=== PATIENT | female | born 2000 | race American Indian/Alaskan Native ===

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

== ENCOUNTER 2018-01-02 21:44 | Outpatient (CLI) | payer OTHER ==
[2018-01-02 21:58] VITALS: BP 116/64
[2018-01-02] MEDS ORDERED: LACTATED RINGERS 500 ML IV ONE (21:58)
[2018-01-02] MEDS ORDERED: LACTATED RINGERS 1,000 ML ONE ×2 (22:15→22:57)
[2018-01-02 23:53] LABS: Blood,Urine MOD (Negative); Color,Urine Yellow (Yellow); Urobilinogen,Urine < 2.0 mg/dL (<2.0)
[2018-01-02 23:54] LABS: Protein,Urine Color Interference mg/dL (Negative)
[2018-01-02 23:55] LABS: Amphetamine Screen,Urine PRESUMPTIVE NEGATIVE; Benzodiazepines Screen,Urine PRESUMPTIVE NEGATIVE; Bilirubin,Urine Color Interference (Negative); Cocaine Screen,Urine PRESUMPTIVE NEGATIVE; Methadone Screen,Urine PRESUMPTIVE NEGATIVE
[2018-01-02 23:59] LABS: RBC,Urine > 182.0 /HPF (0.0-6.0); WBC,Urine < 1.0 /HPF (0.0-6.0)
[2018-01-03 00:27] LABS: Cannabinoid Screen,Urine PRESUMPTIVE NEGATIVE; Opiate Screen,Urine PRESUMPTIVE NEGATIVE
--- NOTE | 2018-01-03 00:33 | Ultrasound Report ---
FINAL REPORT PROCEDURE: US OB BPP WO NON-STRESS TECHNIQUE: Sonographic evaluation for breathing, movement, tone, and amniotic fluid volume was performed. CPT 57472 HISTORY: Bleeding COMPARISON: No prior studies are available for comparison. FINDINGS: Amniotic fluid volume: Normal-score 2. At least one vertical pocket > 2 cm or more in vertical axis. breathing: Normal-score 2. movement: Normal-score 2. tone: Normal. Score: 8 of 8. IMPRESSION: Normal biophysical profile.
--- NOTE | 2018-01-03 00:35 | Ultrasound Report ---
FINAL REPORT PROCEDURE: US OB LIMITED TECHNIQUE: Real-time limited sonographic examination was performed for evaluation of size, position, heartbeat, fluid volume for each fetus with image documentation (1 or more fetuses). CPT 66836 HISTORY: R/O abruption, Bleeding, Placenta, MARILYN COMPARISON: No prior studies are available for comparison. FINDINGS: There is a single fetus in a transverse position. Four quadrant amniotic fluid volume is 20 centimeters. The placenta is in the fundus of the uterus. The placenta echogenicity is normal without abruption. heart rate 157 beats per minute IMPRESSION: There is a single fetus in the uterus. There is a normal amount of amniotic fluid. Placenta is in the fundus of the uterus. No abruption is seen.
== END 2018-01-03 00:37 | disposition home or self-care (01) ==
LOC: TRG 21:44
PROVIDERS: ATTEND Obstetrics & Gynecology
DX: O47.03 False labor before 37 completed weeks of gestation, third trimester (principal); Z3A.34 34 weeks gestation of pregnancy; Z79.899 Other long term (current) drug therapy
CPT/HCPCS: 59025; 76815; 76819; 80307; 81001; 96360; 96361; J7120

== ENCOUNTER 2018-01-06 11:00 | Outpatient (CLI) | payer OTHER ==
--- NOTE | 2018-01-06 12:13 | Ultrasound Report ---
Right ultrasound: patient presenting with an enlarging, palpable, painful mass in her breast at 2:00 location. Ultrasound over the area of concern demonstrates a mostly circumscribed and lobulated hypoechogenic mass measuring approximately 2 x 4.3 cm in size. It is elongated parallel to the skin and lies just below the skin level. Flow imaging suggests flow within the mass. The examining technologist indicates that the scan is somewhat warm over this area. Of additional note is a circumscribed subcutaneous hypoechogenic and circumscribed mass somewhat in the 12:00 location measuring 1.1 cm. Impressions: 1. The palpable mass may be solid however an abscess is not totally excluded. 2. The 12:00 lesion is consistent with a small fibroadenoma. Followup however is recommended following delivery. Recommendation: The palpable mass needs further investigation with aspiration/biopsy. BI-RADS CATEGORY: 4 = Suspicious ACR BI-RADS MAMMOGRAPHIC CODES: 0 = Needs additional imaging evaluation; 1 = Negative; 2 = Benign; 3 = Probably benign; 4 = Suspicious; 5 = Malignant; 6 = Known biopsy-proven malignancy COMMENT: 1. Dense breast tissue, i.e., adenosis, fibrocystic changes, etc., may obscure an underlying neoplasm. 2. Approximately 10% of cancers are not detected with mammography. 3. A negative mammography report should not delay biopsy if a clinically suspicious mass is present.
== END 2018-01-06 11:01 | disposition home or self-care (01) ==
LOC: US 11:00
PROVIDERS: ATTEND Advanced Practice Midwife
DX: N63.10 Unspecified lump in the right breast, unspecified quadrant (principal); Z83.3 Family history of diabetes mellitus; Z82.49 Family history of ischemic heart disease and other diseases of the circulatory system

== ENCOUNTER 2018-01-14 19:55 | Outpatient (CLI) | payer OTHER ==
[2018-01-14 20:20] VITALS: BP 116/68
[2018-01-14] MEDS ORDERED: LACTATED RINGERS 500 ML IV ONE (20:35)
[2018-01-14] MEDS ORDERED: TYLENOL PO ONE (20:36)
[2018-01-14] MEDS ORDERED: VISTARIL PO PRN (20:43)
== END 2018-01-14 21:00 | disposition home or self-care (01) ==
LOC: TRG 19:55
PROVIDERS: ATTEND Obstetrics & Gynecology
DX: O47.03 False labor before 37 completed weeks of gestation, third trimester (principal); Z3A.36 36 weeks gestation of pregnancy
CPT/HCPCS: 59025; Q0177

== ENCOUNTER 2018-01-16 13:58 | Outpatient (CLI) | payer OTHER ==
--- NOTE | 2018-01-16 15:43 | Ultrasound Report ---
ULTRASOUND GUIDED NEEDLE CORE BIOPSY RIGHT BREAST WITH CLIP PLACEMENT: 01/16/18 CLINICAL: 17 year-old with a palpable right breast mass. COMPARISON :01/06/18 FINDINGS: The procedure was explained to the patient and informed consent was obtained. Ultrasound demonstrated the previously described 4 cm mass 2 o'clock. I marked the breast with a felt tip marker and a time out was called. The skin was prepped with Betadine and anesthetized with 1% lidocaine. Needle core biopsy was performed through a tiny dermatotomy using ultrasound guidance, 2% lidocaine with epinephrine for deep anesthesia and a 14-gauge Achieve biopsy device. 3 cores were obtained and placed in formalin. A clip was deployed within the mass. The patient tolerated the procedure well and there were no apparent complications. Hemostasis was achieved with minimal pressure and a sterile dressing was applied. A post procedure mammogram was not performed. She left the department in good condition and was given instructions for wound care and followup. IMPRESSION: Uncomplicated ultrasound guided needle core biopsy with clip placement right breast.
== END 2018-01-16 13:59 | disposition home or self-care (01) ==
LOC: SPVWC 13:58
PROVIDERS: ATTEND Obstetrics & Gynecology
DX: D24.1 Benign neoplasm of right breast (principal)
CPT/HCPCS: 19083; 88305; A4648

== ENCOUNTER 2018-01-22 12:59 | Outpatient (CLI) | payer OTHER ==
[2018-01-22 13:39] VITALS: BP 115/67
[2018-01-22] MEDS ORDERED: VISTARIL PO ONE (15:30)
== END 2018-01-22 14:41 | disposition home or self-care (01) ==
LOC: TRG 12:59
PROVIDERS: ATTEND Obstetrics & Gynecology
DX: O47.03 False labor before 37 completed weeks of gestation, third trimester (principal); Z3A.37 37 weeks gestation of pregnancy
CPT/HCPCS: 59025; Q0177

== ENCOUNTER 2018-02-01 10:42 | Outpatient (CLI) | payer OTHER ==
[2018-02-01] MEDS ORDERED: ZOFRAN ODT PO ONE (12:20)
== END 2018-02-01 12:10 | disposition home or self-care (01) ==
LOC: TRG 10:42
PROVIDERS: ATTEND Obstetrics & Gynecology
DX: O47.03 False labor before 37 completed weeks of gestation, third trimester (principal); Z3A.38 38 weeks gestation of pregnancy
CPT/HCPCS: 59025; Q0162

== ENCOUNTER 2018-02-07 16:47 | Outpatient (CLI) | payer OTHER ==
[2018-02-07 17:42] VITALS: BP 118/68
== END 2018-02-07 17:53 | disposition home or self-care (01) ==
LOC: TRG 16:47
PROVIDERS: ATTEND Obstetrics & Gynecology
DX: O47.1 False labor at or after 37 completed weeks of gestation (principal); Z3A.39 39 weeks gestation of pregnancy; Z91.048 Other nonmedicinal substance allergy status
CPT/HCPCS: 59025

== ENCOUNTER 2018-02-13 02:35 | Outpatient (CLI) | payer OTHER ==
[2018-02-13 03:29] VITALS: BP 111/65
== END 2018-02-13 04:59 | disposition home or self-care (01) ==
LOC: TRG 02:35
PROVIDERS: ATTEND Obstetrics & Gynecology
DX: O62.9 Abnormality of forces of labor, unspecified (principal); Z3A.40 40 weeks gestation of pregnancy
CPT/HCPCS: 59025

== ENCOUNTER 2018-02-19 20:47 | Inpatient (IN) | payer OTHER ==
[2018-02-19] MEDS ORDERED: CERVIDIL VG ONE (23:00)
[2018-02-19 23:28] LABS: Hematocrit 34.4 % (30.3-42.9); Hemoglobin 12.1 gm/dl (10.1-14.3); Mean Corpuscular HGB Conc 35 % (30-34); Mean Corpuscular Hemoglobin 35 pg (28-32); Mean Corpuscular Volume 101 fl (79-97); Platelet Count 211 K/mm3 (140-440); Red Blood Count 3.41 M/mm3 (3.65-5.03); Red Cell Distribution Width 13.3 % (13.2-15.2)
--- NOTE | 2018-02-20 01:14 | History and Physical Report ---
History of Present Illness Date of examination: 02/20/18 (pt here for IOL Cervidil) Date of admission: 02/19/18 20:47 History of present illness: EDC Confirmation: 02/11/2018 Gestational Age: 18 2/7 weeks Past History : 1 Term Births: 0 Premature Births: 0 Living Children: 0 Para: 0 Mult. Births: 0 Prev : 0 Prev. attempt? 0 Aborta: 0 Elect. Ab: 0 Spont. Ab: 0 Ectopics: 0 Past Medical History: Negative Past Medical History Past Surgical History: negative Past Medical History Anesthesia Complications: negative Anemia: negative Autoimmune Disorder: negative Bleeding Disorder: negative Blood Transfusions: negative Breast Disease: negative Diabetes: negative Heart Disease: negative Hypertension: negative Hepatitis/Liver Disease: negative Kidney Disease/UTI: negative Neurologic/Epilepsy/Migraines: negative Phlebitis/Varicosities: negative Psychiatric: negative Pulmonary Disease/Asthma: negative Thyroid Disease: negative Hospitalizations: negative Surgery (Non-drupal programmer): negative Abnormal PAP: negative UVALDO Exposure: negative Infertility: negative Uterine Anomaly: negative Uterine Surgery (not C/S): negative Other Gynecologic Problems: negative Family Hx: Breast CA- PGM DM - PGF Social Hx: Single unemployed no ETOH/drugs/moking Infection History Hx of STD: GC/[facility] 2017 HIV Risk Eval: low risk Hepatitis B Risk Eval: low risk Personal hx. of genital herpes: no Partner hx. of genital herpes: no Rash, Viral, or Febrile illness since last LMP? no Varicella/Chicken Pox Status: Immunized TB Risk: no Genetic History Congenital Heart Defect: Mom: no Dad: no Lili Disease: Mom: no Dad: no Thalassemia Mom: no Dad: no Neural Tube Defect Mom: no Dad: no Down's Syndrome Mom: no Dad: no Alex-Sachs Mom: no Dad: no Sickle Cell Disease/Trait Mom: no Dad: no Hemophilia Mom: no Dad: no Muscular Dystrophy Mom: no Dad: no Cystic Fibrosis Mom: no Dad: no [place] Chorea Mom: no Dad: no Mental Retardation Mom: no Dad: no Fragile X Mom: no Dad: no Other Genetic/Chromosomal Disorder Mom: no Dad: no Child w/other defect Mom: no Dad: no Enviromental Exposures Xray Exposure: no Medication, drug, or alcohol use since LMP: no Chemical/Other Exposure: no Exposure to Cat Liter: no Hx of Parvovirus (Fifth Disease): no Occupational Exposure to Children: none Active Medications (reviewed today): None Current Allergies (reviewed today): No known allergies Past History - Obstetrical History Expected Date of Delivery: 02/11/18 Actual Gestation: 41 Week(s) 2 Day(s) : 1 Para: 0 Hx # Term Pregnancies: 0 Number of Pregnancies: 0 Spontaneous Abortions: 0 Induced : 0 Number of Living Children: 0 Medications and Allergies Allergies Allergy/AdvReac Type Severity Reaction Status Date / Time pollen extracts Allergy Shortness Verified 12/07/17 14:28 of Breath Home Medications Medication Instructions Recorded Confirmed Last Taken Type Pnv,Calcium 72/Iron/Folic Acid 1 tab PO DAILY 12/07/17 02/01/18 01/31/18 History [ Plus Tablet] Active Meds: Active Medications Lactated Ringer's (Lactated Ringers) 1,000 mls @ 125 mls/hr IV DIRECT LAVONNE - Vital Signs Vital signs: Vital Signs Pulse BP 100 H 115/70 02/19/18 21:31 02/19/18 21:31 Temp Pulse Resp BP Pulse Ox 79 115/57 02/20/18 00:13 02/20/18 00:13 - Physical Exam Breasts: Positive: deferred Cardiovascular: Regular rate, Normal S1, Normal S2 Lungs: Positive: Clear to auscultation Abdomen: Positive: normal appearance, soft, normal bowel sounds. Negative: distention, tenderness Genitourinary (Female): Positive: normal external genitalia Vulva: both: normal Vagina: Positive: normal moisture. Negative: discharge Cervix: Negative: lesion, discharge Uterus: Positive: normal size, normal contour Adnexa: both: normal Anus/Rectum: Positive: normal perianal skin, heme negative. Negative: rectal mass, hemorrhoids Extremities: Positive: normal Deep Tendon Reflex Grade: Normal +2 - Obstetrical FHR: category 1 Uterine Contraction Monitor Mode: External Cervical Dilatation: 1 (Cervidil placed 2300) Cervical Effacement Percentage: 50 (Exam per assistant offset press operator) station: -3 Uterine Contraction Pattern: Absent Uterine Tone Measurement Phase: Resting Results Result Diagrams: 02/19/18 23:00 Abnormal lab results 02/19/18 Range/Units 23:00 RBC 3.41 L (3.65-5.03) M/mm3 MCV 101 H (79-97) fl MCH 35 H (28-32) pg MCHC 35 H (30-34) % All other labs normal. GBS POSITIVE HBsAg Screen Negative Negative *1 RPR Non Reactive Non Reactive *2 Rubella Antibodies, IgG [L] <0.90 index Immune >0.99 *3 Non-immune <0.90 Equivocal 0.90 - 0.99 Immune >0.99 ABO Grouping A *4 Rh Factor Positive *5 Please note: Prior records for this patient's ABO / Rh type are not available for additional verification. Antibody Screen Negative Negative *6 WBC 7.2 x10E3/uL 3.4-10.8 *7 RBC [L] 3.48 x10E6/uL 3.77-5.28 *8 Hemoglobin 11.4 g/dL 11.1-15.9 *9 Hematocrit [L] 33.4 % 34.0-46.6 *10 MCV 96 fL 79-97 *11 MCH 32.8 pg 26.6-33.0 *12 MCHC 34.1 g/dL 31.5-35.7 *13 RDW 14.1 % 12.3-15.4 *14 Platelets 251 x10E3/uL 150-379 *15 Neutrophils 66 % Not Estab. *16 Lymphs 26 % Not Estab. *17 Monocytes 7 % Not Estab. *18 Eos 1 % Not Estab. *19 Basos 0 % Not Estab. *20 ! Immature Cells <No Reported Value> *21 Neutrophils (Absolute) 4.8 x10E3/uL 1.4-7.0 *22 Lymphs (Absolute) 1.9 x10E3/uL 0.7-3.1 *23 Monocytes(Absolute) 0.5 x10E3/uL 0.1-0.9 *24 Eos (Absolute) 0.0 x10E3/uL 0.0-0.4 *25 Baso (Absolute) 0.0 x10E3/uL 0.0-0.2 *26 ! Immature Granulocytes 0 % Not Estab. *27 ! Immature Grans (Abs) 0.0 x10E3/uL 0.0-0.1 *28 ! NRBC <No Reported Value> *29 Hematology Comments: <No Reported Value> *30 Tests: (2) AFP Tetra ([id number]) ! Results Report *31 ! Test Results: *Screen Negative* *32 Tests: (3) Panel 209131 ([id number]) HIV Screen 4th Generation wRfx Non Reactive Non Reactive *55 Tests: (4) HCV Ab w/Rflx to Verification ([id number]) ! HCV Ab <0.1 s/co ratio 0.0-0.9 *56 Tests: (5) Comment: ([id number]) ! Comment: SPRCS *57 Non reactive HCV antibody screen is consistent with no HCV infection, unless recent infection is suspected or other evidence exists to indicate HCV infection. Tests: (6) Urine Culture, Routine ([id number]) Urine Culture, Routine Final report *58 Tests: (7) Result ([id number]) ! Result 1 MUG *59 Mixed urogenital robb 10,000-25,000 colony forming units per mL Assessment and Plan - Patient Problems (1) 41 weeks gestation of Onset Date: ~02/20/18 Current Visit: Yes Status: Acute Plan to address problem: 17yo @ 41 weeks for IOL GBS+, rubella non-immune; depression. All orders in EMR. (2) Group B Streptococcus carrier state affecting Onset Date: ~02/20/18 Current Visit: Yes Status: Acute Plan to address problem: Ampicillin per protocol for GBS treatment (3) Rubella non-immune status, antepartum Onset Date: ~02/20/18 Current Visit: Yes Status: Acute Plan to address problem: Pt will receive MMR during the PP
[2018-02-20] MEDS ORDERED: ePHEDrine SULFATE IV PRN ×2 (01:16→06:17)
[2018-02-20] MEDS ORDERED: MINERAL OIL PO PRN (01:16)
[2018-02-20] MEDS ORDERED: XYLOCAINE 2% INFILTRATI ONE (01:16)
[2018-02-20] MEDS ORDERED: BRETHINE SUB-Q PRN (01:16)
[2018-02-20] MEDS ORDERED: ZOFRAN IV PRN ×2 (01:16→10:42)
[2018-02-20] MEDS ORDERED: PITOCin/NS 20 UNIT/1000ML DRIP 20 UNITS/1,000 ML BAG IV SCH (02:00)
[2018-02-20] MEDS: SUBLIMAZE IV PRN ×2 (02:55→05:10)
--- NOTE | 2018-02-20 03:18 | Progress Note ---
Assessment and Plan Pt c/o worsening pain and more freq ctx SVE 1, 50, -2 Cervidil removed. Noted green/yellow d/c Culture sent. Pt OOB to void. IVF bolus given. Fentanyl given. Will start pitocin and ampicillin @ 0400. Pt resting Parents in room with pt. Pt non-communicative. Keeps her eyes closed. She will respond to direct questions. Her mom states she has not been on any meds for depression/anxiety. - Patient Problems (1) 41 weeks gestation of Onset Date: ~02/20/18 Current Visit: Yes Status: Acute (2) Group B Streptococcus carrier state affecting Onset Date: ~02/20/18 Current Visit: Yes Status: Acute (3) Rubella non-immune status, antepartum Onset Date: ~02/20/18 Current Visit: Yes Status: Acute Subjective - Subjective Date of service: 02/20/18 (pt req pain meds) Principal diagnosis: IUP @ 41 weeks IOL Cervidil; GBS + Interval history: EDC Confirmation: 02/11/2018 Gestational Age: 18 2/7 weeks Past History : 1 Term Births: 0 Premature Births: 0 Living Children: 0 Para: 0 Mult. Births: 0 Prev : 0 Prev. attempt? 0 Aborta: 0 Elect. Ab: 0 Spont. Ab: 0 Ectopics: 0 Past Medical History: Negative Past Medical History Past Surgical History: negative Past Medical History Anesthesia Complications: negative Anemia: negative Autoimmune Disorder: negative Bleeding Disorder: negative Blood Transfusions: negative Breast Disease: negative Diabetes: negative Heart Disease: negative Hypertension: negative Hepatitis/Liver Disease: negative Kidney Disease/UTI: negative Neurologic/Epilepsy/Migraines: negative Phlebitis/Varicosities: negative Psychiatric: negative Pulmonary Disease/Asthma: negative Thyroid Disease: negative Hospitalizations: negative Surgery (Non-bobbin cleaner): negative Abnormal PAP: negative UVALDO Exposure: negative Infertility: negative Uterine Anomaly: negative Uterine Surgery (not C/S): negative Other Gynecologic Problems: negative Family Hx: Breast CA- PGM DM - PGF Social Hx: Single unemployed no ETOH/drugs/moking Infection History Hx of STD: /[facility] 2016 HIV Risk Eval: low risk Hepatitis B Risk Eval: low risk Personal hx. of genital herpes: no Partner hx. of genital herpes: no Rash, Viral, or Febrile illness since last LMP? no Varicella/Chicken Pox Status: Immunized TB Risk: no Genetic History Congenital Heart Defect: Mom: no Dad: no Lili Disease: Mom: no Dad: no Thalassemia Mom: no Dad: no Neural Tube Defect Mom: no Dad: no Down's Syndrome Mom: no Dad: no Alex-Sachs Mom: no Dad: no Sickle Cell Disease/Trait Mom: no Dad: no Hemophilia Mom: no Dad: no Muscular Dystrophy Mom: no Dad: no Cystic Fibrosis Mom: no Dad: no [place] Chorea Mom: no Dad: no Mental Retardation Mom: no Dad: no Fragile X Mom: no Dad: no Other Genetic/Chromosomal Disorder Mom: no Dad: no Child w/other defect Mom: no Dad: no Enviromental Exposures Xray Exposure: no Medication, drug, or alcohol use since LMP: no Chemical/Other Exposure: no Exposure to Cat Liter: no Hx of Parvovirus (Fifth Disease): no Occupational Exposure to Children: none Active Medications (reviewed today): None Current Allergies (reviewed today): No known allergies Patient reports: movement normal, contractions Objective - Vital Signs Vital Signs: Vital Signs - 12hr 02/19/18 02/19/18 02/20/18 21:31 23:12 00:13 Pulse Rate 100 H 90 79 Respiratory Rate Blood Pressure 115/70 109/71 115/57 02/20/18 02/20/18 02/20/18 02:12 02:55 03:12 Pulse Rate 69 81 Respiratory 18 Rate Blood Pressure 111/61 105/56 - Exam Breasts: deferred Cardiovascular: Regular rate Lungs: Normal air movement Abdomen: Present: normal appearance, soft. Absent: distention, tenderness Uterus: Present: normal FHR: auscultation normal, category 1 Uterine Contraction Monitor Mode: External Cervical Dilatation: 1 (cervidil in place) Cervical Effacement Percentage: 50 (thick yellow/green d/c; culture done) station: -2 Uterine Contraction Pattern: Regular Uterine Tone Measurement Phase: Resting Uterine Contraction Intensity: Moderate Extremities: normal Deep Tendon Reflex Grade: Normal +2 - Labs Labs: Abnormal Labs 02/19/18 23:00 RBC 3.41 L MCV 101 H MCH 35 H MCHC 35 H Laboratory Results - last 24 hr 02/19/18 02/19/18 23:00 23:00 WBC 6.8 RBC 3.41 L Hgb 12.1 Hct 34.4 MCV 101 H MCH 35 H MCHC 35 H RDW 13.3 Plt Count 211 Blood Type A POSITIVE Antibody Screen Negative
[2018-02-20] MEDS: LACTATED RINGERS 1,000 ML IV SCH ×2 (03:24→05:41)
[2018-02-20] MEDS ORDERED: POLYCILLIN/NS 2 GM/100 ML 2 GM/100 ML BAG IV ONE ×2 (04:00→13:00)
[2018-02-20] MEDS ORDERED: PITOCin/NS 30 UNIT/500ML 30 UNITS/500 ML BAG IV SCH ×2 (04:00→13:00)
--- NOTE | 2018-02-20 05:28 | Progress Note ---
Assessment and Plan Called to LDR Pt screaming in pain. Pit off due to hyperstim; terb given, fluid bolus started for epidural. FHR Cat 1. SROM clear fluid SVE 3,70,-1 Internals placed. Will re-eval after epidural placed. - Patient Problems (1) 41 weeks gestation of Onset Date: ~02/20/18 Current Visit: Yes Status: Acute (2) Group B Streptococcus carrier state affecting Onset Date: ~02/20/18 Current Visit: Yes Status: Acute (3) Rubella non-immune status, antepartum Onset Date: ~02/20/18 Current Visit: Yes Status: Acute Subjective - Subjective Date of service: 02/20/18 (pt screaming out in pain) Principal diagnosis: IUP @ 41 weeks IOL ; GBS + Interval history: EDC Confirmation: 02/11/2018 Gestational Age: 18 2/7 weeks Past History : 1 Term Births: 0 Premature Births: 0 Living Children: 0 Para: 0 Mult. Births: 0 Prev : 0 Prev. attempt? 0 Aborta: 0 Elect. Ab: 0 Spont. Ab: 0 Ectopics: 0 Past Medical History: Negative Past Medical History Past Surgical History: negative Past Medical History Anesthesia Complications: negative Anemia: negative Autoimmune Disorder: negative Bleeding Disorder: negative Blood Transfusions: negative Breast Disease: negative Diabetes: negative Heart Disease: negative Hypertension: negative Hepatitis/Liver Disease: negative Kidney Disease/UTI: negative Neurologic/Epilepsy/Migraines: negative Phlebitis/Varicosities: negative Psychiatric: negative Pulmonary Disease/Asthma: negative Thyroid Disease: negative Hospitalizations: negative Surgery (Non-study abroad coordinator): negative Abnormal PAP: negative UVALDO Exposure: negative Infertility: negative Uterine Anomaly: negative Uterine Surgery (not C/S): negative Other Gynecologic Problems: negative Family Hx: Breast CA- PGM DM - PGF Social Hx: Single unemployed no ETOH/drugs/moking Infection History Hx of STD: GC/[facility] 2017 HIV Risk Eval: low risk Hepatitis B Risk Eval: low risk Personal hx. of genital herpes: no Partner hx. of genital herpes: no Rash, Viral, or Febrile illness since last LMP? no Varicella/Chicken Pox Status: Immunized TB Risk: no Genetic History Congenital Heart Defect: Mom: no Dad: no Lili Disease: Mom: no Dad: no Thalassemia Mom: no Dad: no Neural Tube Defect Mom: no Dad: no Down's Syndrome Mom: no Dad: no Alex-Sachs Mom: no Dad: no Sickle Cell Disease/Trait Mom: no Dad: no Hemophilia Mom: no Dad: no Muscular Dystrophy Mom: no Dad: no Cystic Fibrosis Mom: no Dad: no [place] Chorea Mom: no Dad: no Mental Retardation Mom: no Dad: no Fragile X Mom: no Dad: no Other Genetic/Chromosomal Disorder Mom: no Dad: no Child w/other defect Mom: no Dad: no Enviromental Exposures Xray Exposure: no Medication, drug, or alcohol use since LMP: no Chemical/Other Exposure: no Exposure to Cat Liter: no Hx of Parvovirus (Fifth Disease): no Occupational Exposure to Children: none Active Medications (reviewed today): None Current Allergies (reviewed today): No known allergies Patient reports: movement normal, contractions Objective - Vital Signs Vital Signs: Vital Signs - 12hr 02/19/18 02/19/18 02/20/18 21:31 23:12 00:13 Pulse Rate 100 H 90 79 Respiratory Rate Blood Pressure 115/70 109/71 115/57 02/20/18 02/20/18 02/20/18 02:12 02:55 03:12 Pulse Rate 69 81 Respiratory 18 Rate Blood Pressure 111/61 105/56 02/20/18 02/20/18 03:25 04:12 Pulse Rate 77 Respiratory 18 Rate Blood Pressure 97/55 - Exam Breasts: deferred Cardiovascular: Regular rate Lungs: Normal air movement Abdomen: Present: normal appearance, soft. Absent: distention, tenderness Uterus: Present: normal FHR: auscultation normal, category 1 Uterine Contraction Monitor Mode: Internal Cervical Dilatation: 3 (SROM clear; pitocin off) Cervical Effacement Percentage: 70 (Hyperstim-TERB given; internals placed) station: -1 Uterine Contraction Frequency (min): q1min Uterine Contraction Duration: 50 Uterine Contraction Pattern: Regular Uterine Tone Measurement Phase: Resting Uterine Contraction Intensity: Strong/Firm Extremities: normal Deep Tendon Reflex Grade: Normal +2 - Labs Labs: Abnormal Labs 02/19/18 23:00 RBC 3.41 L MCV 101 H MCH 35 H MCHC 35 H Laboratory Results - last 24 hr 02/19/18 02/19/18 23:00 23:00 WBC 6.8 RBC 3.41 L Hgb 12.1 Hct 34.4 MCV 101 H MCH 35 H MCHC 35 H RDW 13.3 Plt Count 211 Blood Type A POSITIVE Antibody Screen Negative
[2018-02-20] MEDS ORDERED: NARCAN 2 MG/2 ML IV PRN (06:17)
--- NOTE | 2018-02-20 06:17 | Anesthesia Consultation ---
Anesthesia Consult and Med Hx Date of service: 02/20/18 - Airway Anesthetic Teeth Evaluation: Good ROM Head & Neck: Adequate Mental/Hyoid Distance: Adequate Mallampati Class: Class II Intubation Access Assessment: Good - Pulmonary Exam CTA: Yes - Cardiac Exam Cardiac Exam: No Murmur - Pre-Operative Health Status ASA Pre-Surgery Classification: ASA2 Proposed Anesthetic Plan: Epidural - Pulmonary Hx Asthma: No COPD: No Hx Pneumonia: No - Cardiovascular System Hx Hypertension: No - Central Nervous System Hx Seizures: No Hx Psychiatric Problems: No - Endocrine Hx Renal Disease: No Hx End Stage Renal Disease: No Hx Hypothyroidism: No Hx Hyperthyroidism: No - Hematic Hx Anemia: No Hx Sickle Cell Disease: No - Other Systems Hx Alcohol Use: No Hx Substance Use: No
--- NOTE | 2018-02-20 06:28 | Progress Note ---
Assessment and Plan Pt comfortable with epidural. Pitocin restarted 2mu Q 30min ISE/IUPC working well. Ctx Q2-3,45,mod FHR Cat 1 SVE No chg 3,70,-1 Pt encouraged to rest. Will report to Dr.Meziere Dennison-kameron as needed - Patient Problems (1) 41 weeks gestation of Onset Date: ~02/20/18 Current Visit: Yes Status: Acute (2) Group B Streptococcus carrier state affecting Onset Date: ~02/20/18 Current Visit: Yes Status: Acute (3) Rubella non-immune status, antepartum Onset Date: ~02/20/18 Current Visit: Yes Status: Acute Subjective - Subjective Date of service: 02/20/18 (comfrotable with epidural) Principal diagnosis: IUP @ 41 weeks IOL ; GBS + Interval history: EDC Confirmation: 02/11/2018 Gestational Age: 18 2/7 weeks Past History : 1 Term Births: 0 Premature Births: 0 Living Children: 0 Para: 0 Mult. Births: 0 Prev : 0 Prev. attempt? 0 Aborta: 0 Elect. Ab: 0 Spont. Ab: 0 Ectopics: 0 Past Medical History: Negative Past Medical History Past Surgical History: negative Past Medical History Anesthesia Complications: negative Anemia: negative Autoimmune Disorder: negative Bleeding Disorder: negative Blood Transfusions: negative Breast Disease: negative Diabetes: negative Heart Disease: negative Hypertension: negative Hepatitis/Liver Disease: negative Kidney Disease/UTI: negative Neurologic/Epilepsy/Migraines: negative Phlebitis/Varicosities: negative Psychiatric: negative Pulmonary Disease/Asthma: negative Thyroid Disease: negative Hospitalizations: negative Surgery (Non-neon electrician): negative Abnormal PAP: negative UVALDO Exposure: negative Infertility: negative Uterine Anomaly: negative Uterine Surgery (not C/S): negative Other Gynecologic Problems: negative Family Hx: Breast CA- PGM DM - PGF Social Hx: Single unemployed no ETOH/drugs/moking Infection History Hx of STD: GC/CH 2017 HIV Risk Eval: low risk Hepatitis B Risk Eval: low risk Personal hx. of genital herpes: no Partner hx. of genital herpes: no Rash, Viral, or Febrile illness since last LMP? no Varicella/Chicken Pox Status: Immunized TB Risk: no Genetic History Congenital Heart Defect: Mom: no Dad: no Lili Disease: Mom: no Dad: no Thalassemia Mom: no Dad: no Neural Tube Defect Mom: no Dad: no Down's Syndrome Mom: no Dad: no Alex-Sachs Mom: no Dad: no Sickle Cell Disease/Trait Mom: no Dad: no Hemophilia Mom: no Dad: no Muscular Dystrophy Mom: no Dad: no Cystic Fibrosis Mom: no Dad: no Tiller Chorea Mom: no Dad: no Mental Retardation Mom: no Dad: no Fragile X Mom: no Dad: no Other Genetic/Chromosomal Disorder Mom: no Dad: no Child w/other defect Mom: no Dad: no Enviromental Exposures Xray Exposure: no Medication, drug, or alcohol use since LMP: no Chemical/Other Exposure: no Exposure to Cat Liter: no Hx of Parvovirus (Fifth Disease): no Occupational Exposure to Children: none Active Medications (reviewed today): None Current Allergies (reviewed today): No known allergies Patient reports: movement normal, contractions Objective - Vital Signs Vital Signs: Vital Signs - 12hr 02/19/18 02/19/18 02/20/18 21:31 23:12 00:13 Temperature Pulse Rate 100 H 90 79 Respiratory Rate Blood Pressure 115/70 109/71 115/57 Blood Pressure [Left] O2 Sat by Pulse Oximetry 02/20/18 02/20/18 02/20/18 02:12 02:55 03:12 Temperature Pulse Rate 69 81 Respiratory 18 Rate Blood Pressure 111/61 105/56 Blood Pressure [Left] O2 Sat by Pulse Oximetry 02/20/18 02/20/18 02/20/18 03:25 04:12 05:10 Temperature Pulse Rate 77 Respiratory 18 18 Rate Blood Pressure 97/55 Blood Pressure [Left] O2 Sat by Pulse Oximetry 02/20/18 02/20/18 02/20/18 05:39 05:43 05:44 Temperature 97.5 F L Pulse Rate 83 87 89 Respiratory 20 Rate Blood Pressure Blood Pressure 125/64 [Left] O2 Sat by Pulse 100 94 99 Oximetry 02/20/18 02/20/18 02/20/18 05:48 05:49 05:54 Temperature Pulse Rate 83 83 84 Respiratory Rate Blood Pressure 125/64 Blood Pressure [Left] O2 Sat by Pulse 99 98 Oximetry 02/20/18 02/20/18 02/20/18 05:56 06:01 06:06 Temperature Pulse Rate 104 H 101 H 92 H Respiratory Rate Blood Pressure 110/55 Blood Pressure [Left] O2 Sat by Pulse 91 94 98 Oximetry 02/20/18 02/20/18 02/20/18 06:07 06:09 06:11 Temperature Pulse Rate 92 H 82 85 Respiratory Rate Blood Pressure 119/60 112/55 114/55 Blood Pressure [Left] O2 Sat by Pulse 97 Oximetry 02/20/18 02/20/18 02/20/18 06:13 06:15 06:16 Temperature Pulse Rate 84 85 88 Respiratory Rate Blood Pressure 110/55 107/59 Blood Pressure [Left] O2 Sat by Pulse 94 Oximetry 02/20/18 02/20/18 02/20/18 06:17 06:19 06:21 Temperature Pulse Rate 80 91 H 78 Respiratory Rate Blood Pressure 113/57 106/57 109/53 Blood Pressure [Left] O2 Sat by Pulse 98 Oximetry 02/20/18 02/20/18 06:23 06:26 Temperature Pulse Rate 76 87 Respiratory Rate Blood Pressure 106/55 Blood Pressure [Left] O2 Sat by Pulse 98 Oximetry - Exam Breasts: deferred Cardiovascular: Regular rate Lungs: Normal air movement Abdomen: Present: normal appearance, soft. Absent: distention, tenderness Uterus: Present: normal FHR: auscultation normal, category 1 Uterine Contraction Monitor Mode: Internal Cervical Dilatation: 3 Cervical Effacement Percentage: 70 station: -1 Uterine Contraction Pattern: Regular Uterine Contraction Intensity: Moderate Extremities: normal Deep Tendon Reflex Grade: Normal +2 - Labs Labs: Abnormal Labs 02/19/18 23:00 RBC 3.41 L MCV 101 H MCH 35 H MCHC 35 H Laboratory Results - last 24 hr 02/19/18 02/19/18 23:00 23:00 WBC 6.8 RBC 3.41 L Hgb 12.1 Hct 34.4 MCV 101 H MCH 35 H MCHC 35 H RDW 13.3 Plt Count 211 Blood Type A POSITIVE Antibody Screen Negative
[2018-02-20] MEDS ORDERED: fentaNYL-BUPIV 2 MCG/ML-0.125% 200 MCG/100 ML BAG EPIDURAL SCH (07:00)
[2018-02-20] MEDS ORDERED: AMPICILLIN/NS 1 GM/50 ML 1 GM/50 ML BAG IV SCH (08:00)
--- NOTE | 2018-02-20 08:32 | Event Note ---
Date: 02/20/18 Pt doing well comfortable with epidural in place. Will con't with IOL at this time. Plan of care d/w pt and her support persons. All questions were addressed and answered.
--- NOTE | 2018-02-20 10:41 | Procedure Note ---
OB Delivery Note - Delivery Date of Delivery: 02/20/18 Surgeon: KIRSTY HOUSE Estimated blood loss: 200cc - Vaginal Delivery presentation: vertex Delivery position: OA Intrapartum events: none Delivery induction: cervidil Delivery augmentation: pitocin Delivery monitor: external FHT, external uterine, internal FHT, internal uterine Route of delivery: Delivery placenta: spontaneous, other (intact) Delivery cord: 3 umbilical vessels Episiotomy: none Delivery laceration: 2nd degree (left labial, perineal, right perirurethal all repaired in usual fashion with 3-0 vicrly) Delivery repair: vicryl Anesthesia: epidural Delivery comments: Delivery as above without complications. Infant placed on maternal abdomen. Cord clamped x 2 and cut x1. Cord blood was not collected. Placenta delivered spontaneously intact. Lacerations as noted and repaired in usual fashion. Mother and infanta stable in LDR. - Infant A at 1 minute: 8 at 5 minutes: 9 Gender: Male (8lbs 3oz)
[2018-02-20] MEDS ORDERED: DULCOLAX PR PRN (10:42)
[2018-02-20] MEDS ORDERED: TYLENOL PO PRN (10:42)
[2018-02-20] MEDS ORDERED: LANSINOH TP PRN (10:42)
[2018-02-20] MEDS ORDERED: BENADRYL PO PRN (10:42)
[2018-02-20] MEDS ORDERED: PHENERGAN PO PRN (10:42)
[2018-02-20] MEDS ORDERED: TUCKS PAD TP PRN (10:42)
[2018-02-20] MEDS ORDERED: SODIUM CHLORIDE FLUSH SYRINGE 10 ML IV SCH (11:00)
[2018-02-20] MEDS: MOTRIN PO SCH ×2 (16:20→22:38)
[2018-02-20 23:20] LABS: Hematocrit 34.8 % (30.3-42.9); Hemoglobin 11.9 gm/dl (10.1-14.3)
[2018-02-21] MEDS: MOTRIN PO SCH (05:49)
[2018-02-21] MEDS ORDERED: BOOSTRIX IM ONE (06:00)
--- NOTE | 2018-02-21 08:06 | Discharge Summary ---
Providers - Providers Date of Admission: 02/19/18 20:47 Date of discharge: 02/21/18 (desires d/c home) Attending physician: CECIL BLUM Primary care physician: CECIL BLUM Hospitalization Reason for admission: Induction of labor Condition: Good Pertinent studies: H&H 11.9/31.8 Procedures: vaginal Hospital course: uncomplicated vaginal and course Disposition: DC-01 TO HOME OR SELFCARE - Discharge Diagnoses (1) Vaginal delivery Status: Acute Core Measure Documentation - Palliative Care Palliative Care/ Comfort Measures: Not Applicable - Core Measures Any of the following diagnoses?: none Exam - Constitutional Vitals: Temp Pulse Resp BP Pulse Ox 98.3 F 60 18 104/52 99 02/21/18 01:15 02/21/18 01:15 02/21/18 01:15 02/21/18 01:15 02/20/18 13:00 General appearance: Present: no acute distress, well-nourished - EENT Eyes: Present: PERRL ENT: hearing intact, clear oral mucosa - Neck Neck: Present: supple, normal ROM - Respiratory Respiratory effort: normal Respiratory: bilateral: CTA - Cardiovascular Heart Sounds: Present: S1 & S2. Absent: rub, click - Extremities Extremities: pulses symmetrical, No edema Peripheral Pulses: within normal limits - Abdominal General gastrointestinal: Present: soft, non-tender, non-distended, normal bowel sounds Female genitourinary: Present: normal - Integumentary Integumentary: Present: clear, warm, dry - Musculoskeletal Musculoskeletal: gait normal, strength equal bilaterally - Psychiatric Psychiatric: appropriate mood/affect, intact judgment & insight - Neurologic Neurologic: CNII-XII intact, moves all extremities - Additional findings Additional findings: Fundus firm, lochia scant, vssaf, H&H 11.9/34.8. Pt caring for - breast and bottle feeding. Pt's resides with mother who will assist her in caring for infant. patient denies sadness, depressive thoughts, SI or HI. She requests depo before d/c home. Plan Activity: no restrictions Diet: regular Follow up with: CECIL BLUM MD [Primary Care Provider] - 7 Days (Congratulations! Please call [phone] to schedule your son's circumcision and your a depression check in 1 week. Bring ANAYELI cream to your son's appointment and await further instructions. Call for any questions or concerns. ) Prescriptions: Ibuprofen [Motrin 800 MG tab] 800 mg PO Q8HR PRN #30 tablet PRN Reason: Pain Lidocain2.5%/Prilocai2.5% [Emla] 2 gm TP ONCE #1 tube
[2018-02-21] MEDS ORDERED: M-M-R II VACCINE SUB-Q ONE (10:42)
[2018-02-21 16:56] VITALS: BP 117/76
== END 2018-02-21 16:30 | disposition home or self-care (01) | DRG 775 ==
LOC: LD 20:47 → OB 02-20 13:52
PROVIDERS: ADMIT Obstetrics & Gynecology; ATTEND Obstetrics & Gynecology
PROC: 10E0XZZ Delivery of Products of Conception, External Approach (ICD-10-PCS; principal; 2018-02-20)
PROC: 0KQM0ZZ Repair Perineum Muscle, Open Approach (ICD-10-PCS; 2018-02-20)
PROC: 0UQM0ZZ Repair Vulva, Open Approach (ICD-10-PCS; 2018-02-20)
PROC: 3E0P7VZ Introduction of Hormone into Female Reproductive, Via Natural or Artificial Opening (ICD-10-PCS; 2018-02-20)
PROC: 3E0R3BZ Introduction of Anesthetic Agent into Spinal Canal, Percutaneous Approach (ICD-10-PCS; 2018-02-20)
PROC: 00HU33Z Insertion of Infusion Device into Spinal Canal, Percutaneous Approach (ICD-10-PCS; 2018-02-20)
PROC: 3E0234Z Introduction of Serum, Toxoid and Vaccine into Muscle, Percutaneous Approach (ICD-10-PCS; 2018-02-21)
DX: O99.824 Streptococcus B carrier state complicating childbirth (principal); Z3A.41 41 weeks gestation of pregnancy; Z37.0 Single live birth; Z80.3 Family history of malignant neoplasm of breast; O70.1 Second degree perineal laceration during delivery; O71.82 Other specified trauma to perineum and vulva; Z23 Encounter for immunization; Z91.048 Other nonmedicinal substance allergy status
CPT/HCPCS: 36415; 85014; 85018; 85027; 86592; 86850; 86900; 86901; 87591; 99211; A6250; G0463; J0290; J2405; J2590; J3010; J3105; J7120

== ENCOUNTER 2018-05-05 13:30 | Emergency (ER) | payer OTHER ==
--- NOTE | 2018-05-05 20:21 | Emergency Department Report ---
HPI - General Chief Complaint: Urogenital-Female Time Seen by Provider: 05/05/18 20:09 - HPI HPI: Room 34 The patient is a 17-year-old female presenting with chief complaint of right breast pain. The patient states she's had a knot in her right breast for approximately 1 year. The patient states she had a biopsy performed approximately 4 months ago but never followed up with the results. The patient states over the last week pain is increased. Patient denies any history of fever or breast drainage but states she has had yellowish nipple discharge for approximately one month. The patient states she is 2 months and has stopped breast-feeding 6 weeks ago Location: Right breast Duration:~ 1 year Quality: Pain Severity: Moderate Modifying factors: [see above] Context: [see above] Mode of transportation: [not driving] ED Past Medical Hx - Past Medical History Previous Medical History?: No - Surgical History Past Surgical History?: No - Family History Family history: no significant - Social History Smoking Status: Never Smoker Substance Use Type: None (denies illicit drug use) - Medications Home Medications: Home Medications Medication Instructions Recorded Confirmed Last Taken Type Pnv,Calcium 72/Iron/Folic Acid 1 tab PO DAILY 12/07/17 02/01/18 01/31/18 History [ Plus Tablet] Lidocain2.5%/Prilocai2.5% [Emla] 2 gm TP ONCE #1 tube 02/20/18 Unknown Rx Ibuprofen [Motrin 800 MG tab] 800 mg PO Q8HR PRN #30 tablet 02/21/18 Unknown Rx Ibuprofen [Motrin 800 MG tab] 800 mg PO Q8HR PRN #20 tablet 05/05/18 Unknown Rx traMADol [Ultram] 50 mg PO Q6HR PRN #14 tablet 05/05/18 Unknown Rx ED Review of Systems ROS: Stated complaint: (R) BREAST PAIN Other details as noted in HPI Constitutional: denies: fever Eyes: denies: eye pain ENT: denies: throat pain Respiratory: no symptoms reported Cardiovascular: denies: chest pain Endocrine: no symptoms reported Gastrointestinal: denies: abdominal pain Genitourinary: other (right breast pain) Musculoskeletal: denies: back pain Neurological: denies: headache Physical Exam - Physical Exam Vital Signs: Vital Signs 05/05/18 14:03 Temperature 98.6 F Pulse Rate 82 Respiratory 18 Rate Blood Pressure 136/74 O2 Sat by Pulse 100 Oximetry Physical Exam: GENERAL: The patient is well-developed well-nourished female sitting in chair not appear to be in acute distress. [] HEENT: Normocephalic. Atraumatic. Extraocular motions are intact. Patient has moist mucous membranes. NECK: Supple. Trachea midline CHEST/LUNGS: Clear to auscultation. There is no respiratory distress noted. HEART/CARDIOVASCULAR: Regular. There is no tachycardia. There is no gallop rub or murmur. ABDOMEN: Abdomen is soft, nontender. Patient has normal bowel sounds. There is no abdominal distention. SKIN: There is no rash. There is no edema. There is no diaphoresis. NEURO: The patient is awake, alert, and oriented. The patient is cooperative. The patient has normal speech MUSCULOSKELETAL:There is no evidence of acute injury. BREAST: Approximately 2 cm lump palpated in the upper right quadrant of the right breast without overlying skin changes. No nipple discharge seen. No right axillary lymphadenopathy palpated ED Course Vital Signs 05/05/18 14:03 Temperature 98.6 F Pulse Rate 82 Respiratory 18 Rate Blood Pressure 136/74 O2 Sat by Pulse 100 Oximetry ED Medical Decision Making - Radiology Data Radiology results: report reviewed (breast ultrasound), image reviewed (breast ultrasound) [facility] [address] [id number] Ultrasound Report Signed Patient: HEBER BARRON MR#: [id number] : 1999 Acct:[id number] Age/Sex: 17 / F ADM Date: 05/05/18 Loc: ED Attending Dr: Ordering Physician: ELIJAH NOVOA MD Date of Service: 05/05/18 Procedure(s): US breast RT limited Accession Number(s): [id number] cc: ELIJAH NOVOA MD FINAL REPORT PROCEDURE: Limited right breast ultrasound. TECHNIQUE: Real-time scanning was performed over a painful lump in the right breast. HISTORY: Painful right breast lump. COMPARISON: No prior studies are available for comparison. FINDINGS : A stat interpretation was requested. There are 2 solid hypoechoic masses in the upper inner quadrant of the right breast. These are at approximately the 2: 00 position, 4 centimeters from the nipple. The larger mass is ovoid in shape and measures 2.5 centimeters x 1.6 centimeters x 2.2 centimeters. The smaller mass is bilobed and measures 1.7 centimeters x 1.3 centimeters x 1.6 centimeters. These are nonspecific masses. The do not represent abscesses. IMPRESSION: Nonspecific solid masses in the right breast. Transcribed By: MRM Dictated By: QING JACKSON MD Electronically Authenticated By: QING JACKSON MD Signed Date/Time: 05/05/182126 DD/ 26 TD/TT: 2126 - Differential Diagnosis fibrocystic changes, breast abscess, breast cyst Critical care attestation.: If time is entered above; I have spent that time in minutes in the direct care of this critically ill patient, excluding procedure time. ED Disposition Clinical Impression: Breast mass, right Disposition: - TO HOME OR SELFCARE Is pt being admited?: No Does the pt Need Aspirin: No Condition: Stable Instructions: Breast Mass (ED) Additional Instructions: It is very important that you follow up with the physicians who performed your breast biopsy for the results. Return to the emergency department immediately should you develop worsening symptoms, fever, inability to tolerate food or liquid or any other concerns. Prescriptions: Ibuprofen [Motrin 800 MG tab] 800 mg PO Q8HR PRN #20 tablet PRN Reason: Pain, Moderate (4-6) traMADol [Ultram] 50 mg PO Q6HR PRN #14 tablet PRN Reason: Pain Referrals: PRIMARY CARE, [Primary Care Provider] - 3-5 Days SHERRY DE LA ROSA [Staff Physician] - 3-5 Days Time of Disposition: 21:39
--- NOTE | 2018-05-05 21:28 | Ultrasound Report ---
FINAL REPORT PROCEDURE: Limited right breast ultrasound. TECHNIQUE: Real-time scanning was performed over a painful lump in the right breast. HISTORY: Painful right breast lump. COMPARISON: No prior studies are available for comparison. FINDINGS: A stat interpretation was requested. There are 2 solid hypoechoic masses in the upper inner quadrant of the right breast. These are at approximately the 2:00 position, 4 centimeters from the nipple. The larger mass is ovoid in shape and measures 2.5 centimeters x 1.6 centimeters x 2.2 centimeters. The smaller mass is bilobed and measures 1.7 centimeters x 1.3 centimeters x 1.6 centimeters. These are nonspecific masses. The do not represent abscesses. IMPRESSION: Nonspecific solid masses in the right breast.
[2018-05-05 21:48] VITALS: BP 134/78
== END 2018-05-05 21:49 | disposition home or self-care (01) ==
LOC: ED 13:30
DX: N63.0 Unspecified lump in unspecified breast (principal); N64.4 Mastodynia

== ENCOUNTER 2018-08-31 17:32 | Emergency (ER) | payer SELFPAY ==
--- NOTE | 2018-08-31 17:56 | Emergency Department Report ---
Blank Doc - Documentation Documentation: 18 y o female presents with pain with talking and loss of voice along with thro at pain states wants frank screened for STD denies genitourinay sxs ua/upt reevaluate
[2018-08-31 17:58] VITALS: BP 124/70
[2018-08-31 18:41] LABS: Bilirubin,Urine NEG (Negative); Blood,Urine MOD (Negative); Color,Urine Yellow (Yellow); Mucus,Urine 1+ /HPF; Protein,Urine <15 mg/dL mg/dL (Negative); Urobilinogen,Urine < 2.0 mg/dL (<2.0)
[2018-08-31 18:46] LABS: HCG Qualitative,Urine Negative (Negative)
--- NOTE | 2018-08-31 20:31 | Emergency Department Report ---
ED ENT HPI - General Chief complaint: Medical Clearance Stated complaint: CHECK UP Time Seen by Provider: 08/31/18 17:53 Source: patient Mode of arrival: Ambulatory Limitations: No Limitations - History of Present Illness Initial comments: This is a 18-year-old female nontoxic, well nourished in appearance, no acute signs of distress presents to the ED with c/o of sore throat and hoariness x2 days. Patient describes sore throat as swallowing razer blades. Patient denies any fever, chills, headache, stiff neck, nausea, vomiting, chest pain, shortness of breath, numbness or tingling. Patient denies any drooling. Patient also states she wants a STD checkup. Patient denies any vaginal discharge or any urinary symptoms. Patient states that she just wants a check up. Patient denies any allergies or significant past medical history. MD complaint: sore throat -: days(s) (2) Location: throat Severity: mild Severity scale (0 -10): 3 Quality: aching Consistency: constant Improves with: none Worsens with: swallowing Associated Symptoms: pain with swallowing, sore throat. denies: fever, cough, g um swelling, toothache, tinnitus, hearing loss, discharge from ear, rhinorrhea - Related Data Home Medications Medication Instructions Recorded Confirmed Last Taken Pnv,Calcium 72/Iron/Folic Acid 1 tab PO DAILY 12/07/17 02/01/18 01/31/18 [ Plus Tablet] Previous Rx's Medication Instructions Recorded Last Taken Type Lidocain2.5%/Prilocai2.5% [Emla] 2 gm TP ONCE #1 tube 02/20/18 Unknown Rx Ibuprofen [Motrin 800 MG tab] 800 mg PO Q8HR PRN #30 tablet 02/21/18 Unknown Rx Ibuprofen [Motrin 800 MG tab] 800 mg PO Q8HR PRN #20 tablet 05/05/18 Unknown Rx traMADol [Ultram] 50 mg PO Q6HR PRN #14 tablet 05/05/18 Unknown Rx Amoxicillin [Amoxicillin TAB] 875 mg PO BID #20 tablet 08/31/18 Unknown Rx Nitrofurantoin Greer/M-Cryst 100 mg PO Q12HR #14 capsule 08/31/18 Unknown Rx [Macrobid CAP] Allergies Allergy/AdvReac Type Severity Reaction Status Date / Time pollen extracts Allergy Shortness Verified 08/31/18 17:53 of Breath raspberry Allergy Rash Verified 08/31/18 17:53 ED Dental HPI - General Chief complaint: Medical Clearance Stated complaint: CHECK UP Time Seen by Provider: 08/31/18 17:53 Source: patient Mode of arrival: Ambulatory Limitations: No Limitations - Related Data Home Medications Medication Instructions Recorded Confirmed Last Taken Pnv,Calcium 72/Iron/Folic Acid 1 tab PO DAILY 12/07/17 02/01/18 01/31/18 [ Plus Tablet] Previous Rx's Medication Instructions Recorded Last Taken Type Lidocain2.5%/Prilocai2.5% [Emla] 2 gm TP ONCE #1 tube 02/20/18 Unknown Rx Ibuprofen [Motrin 800 MG tab] 800 mg PO Q8HR PRN #30 tablet 02/21/18 Unknown Rx Ibuprofen [Motrin 800 MG tab] 800 mg PO Q8HR PRN #20 tablet 05/05/18 Unknown Rx traMADol [Ultram] 50 mg PO Q6HR PRN #14 tablet 05/05/18 Unknown Rx Amoxicillin [Amoxicillin TAB] 875 mg PO BID #20 tablet 08/31/18 Unknown Rx Nitrofurantoin Greer/M-Cryst 100 mg PO Q12HR #14 capsule 08/31/18 Unknown Rx [Macrobid CAP] Allergies Allergy/AdvReac Type Severity Reaction Status Date / Time pollen extracts Allergy Shortness Verified 08/31/18 17:53 of Breath raspberry Allergy Rash Verified 08/31/18 17:53 ED Review of Systems ROS: Stated complaint: CHECK UP Other details as noted in HPI Constitutional: denies: chills, fever Eyes: denies: eye pain, eye discharge, vision change ENT: denies: ear pain, throat pain Respiratory: denies: cough, shortness of breath, wheezing Cardiovascular: denies: chest pain, palpitations Endocrine: no symptoms reported Gastrointestinal: denies: abdominal pain, nausea, diarrhea Genitourinary: denies: urgency, dysuria, discharge Musculoskeletal: denies: back pain, joint swelling, arthralgia Skin: denies: rash, lesions Neurological: denies: headache, weakness, paresthesias Psychiatric: denies: anxiety, depression Hematological/Lymphatic: denies: easy bleeding, easy bruising ED Past Medical Hx - Social History Smoking Status: Current Every Day Smoker Substance Use Type: None - Medications Home Medications: Home Medications Medication Instructions Recorded Confirmed Last Taken Type Pnv,Calcium 72/Iron/Folic Acid 1 tab PO DAILY 12/07/17 02/01/18 01/31/18 History [ Plus Tablet] Lidocain2.5%/Prilocai2.5% [Emla] 2 gm TP ONCE #1 tube 02/20/18 Unknown Rx Ibuprofen [Motrin 800 MG tab] 800 mg PO Q8HR PRN #30 tablet 02/21/18 Unknown Rx Ibuprofen [Motrin 800 MG tab] 800 mg PO Q8HR PRN #20 tablet 05/05/18 Unknown Rx traMADol [Ultram] 50 mg PO Q6HR PRN #14 tablet 05/05/18 Unknown Rx Amoxicillin [Amoxicillin TAB] 875 mg PO BID #20 tablet 08/31/18 Unknown Rx Nitrofurantoin Greer/M-Cryst 100 mg PO Q12HR #14 capsule 08/31/18 Unknown Rx [Macrobid CAP] ED Physical Exam - General Limitations: No Limitations General appearance: alert, in no apparent distress - Head Head exam: Present: atraumatic, normocephalic - Expanded ENT Exam Expanded Ear exam: Present: normal external inspection Mouth exam: Present: normal external inspection. Absent: drooling, trismus, muffled voice Teeth exam: Present: normal inspection Throat exam: Positive: tonsillar erythema, tonsillomegaly (2+), other (uvula midline. No abscess.). Negative: tonsillar exudate, R peritonsillar mass, L peritonsillar mass - Neck Neck exam: Present: full ROM, lymphadenopathy (bilateral tonsillar). Absent: tenderness, meningismus - Back Exam Back exam: Present: normal inspection, full ROM. Absent: tenderness, CVA tenderness (R), CVA tenderness (L), muscle spasm, paraspinal tenderness, vertebral tenderness, rash noted - Neurological Exam Neurological exam: Present: alert, oriented X3 - Psychiatric Psychiatric exam: Present: normal affect, normal mood - Skin Skin exam: Present: warm, dry, intact, normal color. Absent: rash ED Course Vital Signs 08/31/18 17:53 Temperature 97.7 F Pulse Rate 88 Respiratory 18 Rate Blood Pressure 124/70 O2 Sat by Pulse 99 Oximetry - Reevaluation(s) Reevaluation #1: 08/31/18 20:28 Patient is speaking in full sentences with no signs of distress noted. Critical care attestation.: If time is entered above; I have spent that time in minutes in the direct care of this critically ill patient, excluding procedure time. ED Disposition Clinical Impression: Tonsillitis UTI (urinary tract infection) Qualifiers: Urinary tract infection type: site unspecified Hematuria presence: without hematuria Qualified Code(s): N39.0 - Urinary tract infection, site not specified Pharyngitis Qualifiers: Pharyngitis/tonsillitis etiology: unspecified etiology Qualified Code(s): J02.9 - Acute pharyngitis, unspecified Disposition: TO HOME OR SELFCARE Is pt being admited?: No Does the pt Need Aspirin: No Condition: Stable Instructions: Urinary Tract Infection in Women (ED), Pharyngitis (ED) Additional Instructions: Follow-up with a primary care doctor in 3-5 days or if symptoms worsen and continue return to emergency room as soon as possible. Prescriptions: Amoxicillin [Amoxicillin TAB] 875 mg PO BID #20 tablet Nitrofurantoin Greer/M-Cryst [Macrobid CAP] 100 mg PO Q12HR #14 capsule Referrals: PRIMARY CARE, [Referring] - 3-5 Days YULIYA MAR MD [Staff Physician] - 3-5 Days [facility] [Outside] - 3-5 Days [facility] [Outside] - 3-5 Days Forms: Work/School Release Form(ED)
== END 2018-08-31 20:36 | disposition home or self-care (01) ==
LOC: ED 17:32
DX: J03.90 Acute tonsillitis, unspecified (principal); N39.0 Urinary tract infection, site not specified; J02.9 Acute pharyngitis, unspecified; F17.200 Nicotine dependence, unspecified, uncomplicated
CPT/HCPCS: 81001; 81025

== ENCOUNTER 2018-09-22 21:16 | Emergency (ER) | payer OTHER ==
[2018-09-22] MEDS ORDERED: NACL 0.9% 1000 ML 1,000 ML IV ONE ×2 (22:20→22:21)
--- NOTE | 2018-09-22 22:22 | Emergency Department Report ---
History of Present Illness - General Stated Complaint: SUICIDAL/MH EVAL Time Seen by Provider: 09/22/18 22:18 Source: patient, EMS Mode of arrival: Stretcher Limitations: No Limitations - History of Present Illness Initial Comments: Patient is a 18-year-old female that presents emergency room with a suicide attempt by overdose. Patient states she has suicidal ideation and wanted to kill herself and so she took an unknown amount of Macrobid and 60 tablets of 200 mg ibuprofen with benadryl . Patient states she's been depressed. Patient states she didn't have work and family problems. Patient denies pain. Patient denies chest pain or shortness of breath. Patient states she is feeling drowsy. Patient states she took all these medications at 4 PM patient states she's got lots of psychiatric problems. Patient states she is also currently on her cycle MD Complaint: intentional overdose -: Sudden Intent: suicide attempt How Overdose Was Discovered: called family/friend Context: Intentional Overdose: relationship problems, work problems Associated Symptoms: lethargy Treatments Prior to Arrival: none - Related Data Home Medications Medication Instructions Recorded Confirmed Last Taken Pnv,Calcium 72/Iron/Folic Acid 1 tab PO DAILY 12/07/17 02/01/18 01/31/18 [ Plus Tablet] Previous Rx's Medication Instructions Recorded Last Taken Type Lidocain2.5%/Prilocai2.5% [Emla] 2 gm TP ONCE #1 tube 02/20/18 Unknown Rx Ibuprofen [Motrin 800 MG tab] 800 mg PO Q8HR PRN #30 tablet 02/21/18 Unknown Rx Ibuprofen [Motrin 800 MG tab] 800 mg PO Q8HR PRN #20 tablet 05/05/18 Unknown Rx traMADol [Ultram] 50 mg PO Q6HR PRN #14 tablet 05/05/18 Unknown Rx Amoxicillin [Amoxicillin TAB] 875 mg PO BID #20 tablet 08/31/18 Unknown Rx Nitrofurantoin [place]/M-Cryst 100 mg PO Q12HR #14 capsule 08/31/18 Unknown Rx [Macrobid CAP] Allergies Allergy/AdvReac Type Severity Reaction Status Date / Time pollen extracts Allergy Shortness Verified 08/31/18 17:53 of Breath raspberry Allergy Rash Verified 08/31/18 17:53 ED Review of Systems ROS: Stated complaint: SUICIDAL/MH EVAL Other details as noted in HPI Constitutional: denies: chills, fever Eyes: denies: eye pain, eye discharge, vision change ENT: denies: ear pain, throat pain Respiratory: denies: cough, shortness of breath, wheezing Cardiovascular: denies: chest pain, palpitations Endocrine: no symptoms reported Gastrointestinal: denies: abdominal pain, nausea, diarrhea Genitourinary: denies: urgency, dysuria, discharge Musculoskeletal: denies: back pain, joint swelling, arthralgia Skin: denies: rash, lesions Neurological: denies: headache, weakness, paresthesias Psychiatric: denies: anxiety, depression Hematological/Lymphatic: denies: easy bleeding, easy bruising ED Past Medical Hx - Past Medical History Previous Medical History?: Yes Hx Psychiatric Treatment: Yes - Surgical History Past Surgical History?: No - Family History Family history: no significant - Social History Smoking Status: Current Every Day Smoker Substance Use Type: None - Medications Home Medications: Home Medications Medication Instructions Recorded Confirmed Last Taken Type Pnv,Calcium 72/Iron/Folic Acid 1 tab PO DAILY 12/07/17 02/01/18 01/31/18 History [ Plus Tablet] Lidocain2.5%/Prilocai2.5% [Emla] 2 gm TP ONCE #1 tube 02/20/18 Unknown Rx Ibuprofen [Motrin 800 MG tab] 800 mg PO Q8HR PRN #30 tablet 02/21/18 Unknown Rx Ibuprofen [Motrin 800 MG tab] 800 mg PO Q8HR PRN #20 tablet 05/05/18 Unknown Rx traMADol [Ultram] 50 mg PO Q6HR PRN #14 tablet 05/05/18 Unknown Rx Amoxicillin [Amoxicillin TAB] 875 mg PO BID #20 tablet 08/31/18 Unknown Rx Nitrofurantoin [place]/M-Cryst 100 mg PO Q12HR #14 capsule 08/31/18 Unknown Rx [Macrobid CAP] ED Physical Exam - General Limitations: No Limitations General appearance: alert, in no apparent distress, lethargic (but easily arousable and answers all questions appropriately) - Head Head exam: Present: atraumatic, normocephalic - Eye Eye exam: Present: normal appearance - ENT ENT exam: Present: mucous membranes moist - Neck Neck exam: Present: normal inspection - Respiratory Respiratory exam: Present: normal lung sounds bilaterally. Absent: respiratory distress - Cardiovascular Cardiovascular Exam: Present: regular rate, normal rhythm. Absent: systolic murmur, diastolic murmur, rubs, gallop - GI/Abdominal GI/Abdominal exam: Present: soft, normal bowel sounds - Extremities Exam Extremities exam: Present: normal inspection - Back Exam Back exam: Present: normal inspection - Neurological Exam Neurological exam: Present: oriented X3, CN II-XII intact - Psychiatric Psychiatric exam: Present: depressed, flat affect - Skin Skin exam: Present: warm, dry, intact, normal color. Absent: rash ED Course Vital Signs 09/22/18 09/22/18 09/22/18 22:19 22:29 23:30 Temperature 98.8 F 98.8 F Pulse Rate 87 87 82 Respiratory 15 15 14 Rate Blood Pressure 114/69 117/75 Blood Pressure 114/69 [Left] O2 Sat by Pulse 98 98 100 Oximetry 09/22/18 09/23/18 23:41 00:30 Temperature Pulse Rate 81 Respiratory 15 15 Rate Blood Pressure 127/77 Blood Pressure [Left] O2 Sat by Pulse 100 99 Oximetry - Reevaluation(s) Reevaluation #1: Initial evaluation done. Patient states that she wanted to kill herself and that she took ibuprofen and Macrobid. The patient was placed on a 1013 and p oison control be called by the nurse 09/22/18 22:18 Reevaluation #2: Discussed all results with patient. Patient will repeat BMP after third liter of fluid. 09/23/18 01:04 Patient is medically cleared. Discussed all results with patient. Patient will remain in the ER on a 1013 until accepted into appropriate psychiatric facility. 09/23/18 03:24 - Consultations Consultation #1: Poison control consultation. See recommendations below HEBER BARRON Female : 2000 MedRec# [id number] 09/22/18 22:19 (created 09/22/18 23:21) - Nurse Note by ANNA MADRID Acct Num: [id number] : 2000 Patient Age: 18 2219-Spoke with Luis at the [facility], was advised to treat the patient symptomatically. Per Luis the following should be completed on the patient: vitals qhr, CBC, CMP with lactic acid, test, toxicology screen to include salicylate , and acetaminophen and ETOH, UA, and EKG to look for prolonged QRS >100 milliseconds. Patient is not a candidate for activated charcoal since pill ingestion was >2 hrs ago. Advised to treat patient with Pepcid or Protonix to diminish chances of GI bleed. Will call back with results of lab. Initialized on 09/22/18 23:21 - END OF NOTE ED Medical Decision Making - Lab Data Result diagrams: 09/22/18 22:40 09/23/18 02:54 - EKG Data -: EKG Interpreted by Me EKG shows normal: sinus rhythm, axis, intervals, QRS complexes, ST-T waves Rate: normal - Medical Decision Making He is a 18-year-old female that presents to emergency room with complaints of overdose with Advil PM and Macrobid. Patient states she took 60 of Advil PM and unknown amount of Macrobid. Poison control called. Poison control recommendations received. See nurse's notes. Patient placed on 1013 immediately upon arrival to the ER. Patient's lethargy is secondary to her Benadryl intake. Patient's labs unremarkable and patient's chemistry was repeated and remained normal. The patient has surpassed the observation time recommended by poison control. Patient's EKG is unchanged. Patient is medically cleared and will be consulted. - Differential Diagnosis overdose. Suicidal ideation with attempt . Critical Care Time: Yes Critical care attestation.: If time is entered above; I have spent that time in minutes in the direct care of this critically ill patient, excluding procedure time. Critical Care Time: 65 minutes ED Disposition Clinical Impression: Suicidal ideation Suicide attempt by drug ingestion Qualifiers: Encounter type: initial encounter Qualified Code(s): T50.902A - Poisoning by unspecified drugs, medicaments and biological substances, intentional self-harm, initial encounter Intentional ibuprofen overdose Qualifiers: Encounter type: initial encounter Qualified Code(s): T39.312A - Poisoning by propionic acid derivatives, intentional self-harm, initial encounter Diphenhydramine overdose Qualifiers: Encounter type: initial encounter Injury intent: intentional self-harm Qualified Code(s): T45.0X2A - Poisoning by antiallergic and antiemetic drugs, intentional self-harm, initial encounter Disposition: DC/TX-65 PSY HOSP/PSY UNIT Is pt being admited?: No Does the pt Need Aspirin: No Condition: Stable
[2018-09-22 22:55] LABS: Basophils % (Auto) 0.3 % (0.0-1.8); Hematocrit 37.5 % (30.3-42.9); Hemoglobin 12.1 gm/dl (10.1-14.3); Mean Corpuscular HGB Conc 32 % (30-34); Mean Corpuscular Volume 95 fl (79-97); Monocytes # (Auto) 0.3 K/mm3 (0.0-0.8); Monocytes % (Auto) 4.2 % (0.0-7.3); Platelet Count 306 K/mm3 (140-440); Red Blood Count 3.95 M/mm3 (3.65-5.03); Red Cell Distribution Width 13.1 % (13.2-15.2)
[2018-09-22] MEDS ORDERED: PROTONIX IV ONE (23:18)
[2018-09-22 23:30] LABS: Alanine Aminotransferase 12 units/L (7-56); Albumin 4.1 g/dL (3.9-5); BUN/Creatinine Ratio 13; Blood Urea Nitrogen 8 mg/dL (7-17); Calcium 8.9 mg/dL (8.4-10.2); Hemolysis Index 13
[2018-09-22 23:57] LABS: Bilirubin,Urine NEG (Negative); Blood,Urine LG (Negative); Mucus,Urine 3+ /HPF
[2018-09-23] LABS: Color,Urine Yellow (Yellow); RBC,Urine > 182.0 /HPF (0.0-6.0)
[2018-09-23 00:01] LABS: Amphetamine Screen,Urine PRESUMPTIVE NEGATIVE; Benzodiazepines Screen,Urine PRESUMPTIVE NEGATIVE; Cannabinoid Screen,Urine PRESUMPTIVE NEGATIVE; Cocaine Screen,Urine PRESUMPTIVE NEGATIVE; Methadone Screen,Urine PRESUMPTIVE NEGATIVE; Opiate Screen,Urine PRESUMPTIVE NEGATIVE
[2018-09-23] MEDS ORDERED: NACL 0.9% 1000 ML 1,000 ML IV ONE (01:08)
[2018-09-23 03:12] LABS: BUN/Creatinine Ratio 14; Blood Urea Nitrogen 7 mg/dL (7-17); Calcium 7.8 mg/dL (8.4-10.2); Hemolysis Index 22
[2018-09-23] MEDS: TUMS PO SCH (21:30)
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
[2018-09-24] MEDS: TUMS PO SCH (10:52)
[2018-09-24] MEDS: PROzac PO SCH (10:52)
[2018-09-25 06:17] LABS: Alanine Aminotransferase 8 units/L (7-56); Albumin 3.8 g/dL (3.9-5); BUN/Creatinine Ratio 15; Blood Urea Nitrogen 6 mg/dL (7-17); Calcium 8.7 mg/dL (8.4-10.2); Hemolysis Index 12
[2018-09-25] MEDS: PROzac PO SCH (09:46)
[2018-09-25] MEDS: TUMS PO SCH (09:46)
--- NOTE | 2018-09-25 11:37 | Progress Note ---
Subjective - Reason for Consult Consult date: 09/25/18 Reason for consult: Psychiatry Follow-up - Chief Complaint Chief complaint: "I did swallow the pills" Patient is a 18-year-old AA female who presented to the ER for a suicide attempt by overdose. Today the patient is calm and cooperative during the assessment. She would not confirm or deny she wanted to kill herself when she overdosed. She stated that she was struggling with "lots of stressors." She denies SI/HI's and AVH's. She denies any side effects of her medication. Mental Status Exam - Vital signs Last Vital Signs Temp 98.1 F 09/25/18 09:10 Pulse 85 09/25/18 09:10 Resp 16 09/25/18 09:10 BP 113/90 09/25/18 09:10 Pulse Ox 100 09/25/18 09:10 - Exam Narrative exam: MSE: Appearance: calm, cooperative Behavior: regular eye contact Speech: regular rate and loud tone Mood: "okay" Affect: congruent to mood Thought Process: circumstantial Thought Content: denies SI/HI's and AVH's Motor Activity: sitting up in the bed Cognition: A/O x3 Insight: variable to fair Judgment: variable Assessment and Plan Impression: MDD, Severe Type. Intentional Overdose. Today the patient is calm and cooperative during the assessment. QTc-455. Recommendation/Plan: Continue 1013 and Prozac 20 mg PO daily for depression. Discussed possible suicidality/medication induced rios with the patient reference Prozac. Dispo: The patient was referred to inpatient psy services. Will staff with Dr Fatemeh Germain.
[2018-09-26] MEDS: TUMS PO SCH (10:35)
[2018-09-26] MEDS: PROzac PO SCH (10:35)
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
[2018-09-26 14:44] VITALS: BP 126/77
== END 2018-09-26 14:42 | disposition home or self-care (01) ==
LOC: ED 21:16
DX: T37.8X2A Poisoning by other specified systemic anti-infectives and antiparasitics, intentional self-harm, initial encounter (principal); T45.0X2A Poisoning by antiallergic and antiemetic drugs, intentional self-harm, initial encounter; T39.312A Poisoning by propionic acid derivatives, intentional self-harm, initial encounter; Y92.89 Other specified places as the place of occurrence of the external cause; F17.200 Nicotine dependence, unspecified, uncomplicated
CPT/HCPCS: 36415; 80048; 80053; 80307; 81001; 82140; 84703; 85025; 93005; 93010; 96374; 99285; C9113; G0480; J7030; 80320

== ENCOUNTER 2019-05-22 18:53 | Emergency (ER) | payer OTHER ==
[2019-05-22] MEDS ORDERED: SODIUM CHLORIDE 0.9% 1000 ML 1,000 ML IV ONE (21:07)
--- NOTE | 2019-05-22 21:07 | Event Note ---
ED Screening Note Date of service: 05/22/19 Time: 21:04 ED Screening Note: Pt reports that for past 3 days she has been dizzy off and on as well as generalized shakes intermittently; vomitted x 1 today. She reports SOB for "a while" but feels like its getting worse and chest feels heavy when she feels SOB also going on for a while. LMC was 2 mths, currently on BC. She has no significant pmhx. This initial assessment/diagnostic orders/clinical plan/treatment(s) is/are subject to change based on patients health status, clinical progression and re- assessment by fellow clinical providers in the ED. Further treatment and workup at subsequent clinical providers discretion. Patient/guardian urged not to elope from the ED as their condition may be serious if not clinically assessed and managed. Initial orders include: labs ekg cxr ua
[2019-05-22 21:45] LABS: Basophils % (Auto) 0.5 % (0.0-1.8); Eosinophils % (Auto) 0.4 % (0.0-4.3); Hematocrit 36.6 % (30.3-42.9); Hemoglobin 12.3 gm/dl (10.1-14.3); Lymphocytes # (Auto) 2.1 K/mm3 (1.2-5.4); Lymphocytes % (Auto) 30.6 % (13.4-35.0); Mean Corpuscular HGB Conc 34 % (30-34); Mean Corpuscular Volume 93 fl (79-97); Monocytes # (Auto) 0.5 K/mm3 (0.0-0.8); Monocytes % (Auto) 7.4 % (0.0-7.3); Platelet Count 277 K/mm3 (140-440); Red Blood Count 3.95 M/mm3 (3.65-5.03); Red Cell Distribution Width 14.9 % (13.2-15.2)
[2019-05-22 22:10] LABS: Alanine Aminotransferase 9 units/L (7-56); Albumin 4.5 g/dL (3.9-5); BUN/Creatinine Ratio 8; Blood Urea Nitrogen 4 mg/dL (7-17); Calcium 9.2 mg/dL (8.4-10.2); Hemolysis Index 2
--- NOTE | 2019-05-22 22:21 | XRay Report ---
CHEST 2 VIEWS INDICATION / CLINICAL INFORMATION: Lightheadedness/Dizziness. COMPARISON: None available. FINDINGS: SUPPORT DEVICES: None. HEART / MEDIASTINUM: No significant abnormality. LUNGS / PLEURA: No significant pulmonary or pleural abnormality. No pneumothorax. ADDITIONAL FINDINGS: No significant additional findings. IMPRESSION: 1. No acute findings. Signer Name: Isaac Norwood MD Signed: 05/22/2019 10:17 PM Workstation Name: [id number]
[2019-05-22 22:43] LABS: Bilirubin,Urine NEG (Negative); Blood,Urine NEG (Negative); Color,Urine Yellow (Yellow); Mucus,Urine 3+ /HPF; Protein,Urine <15 mg/dL mg/dL (Negative); Urobilinogen,Urine < 2.0 mg/dL (<2.0)
[2019-05-22 22:48] LABS: Amphetamine Screen,Urine PRESUMPTIVE NEGATIVE; Benzodiazepines Screen,Urine PRESUMPTIVE NEGATIVE; Cocaine Screen,Urine PRESUMPTIVE NEGATIVE; Methadone Screen,Urine PRESUMPTIVE NEGATIVE; Opiate Screen,Urine PRESUMPTIVE NEGATIVE
[2019-05-22 22:59] LABS: Cannabinoid Screen,Urine PRESUMPTIVE POSITIVE
[2019-05-23] MEDS ORDERED: KETOROLAC 30 MG/1 ML INJ IV ONE (00:33)
[2019-05-23] MEDS ORDERED: ONDANSETRON 4 MG/2 ML INJ IV ONE (00:33)
--- NOTE | 2019-05-23 02:06 | Emergency Department Report ---
ED General Adult HPI - General Chief complaint: Dizziness Stated complaint: FLU LIKE SYMPTOMS Time Seen by Provider: 05/22/19 21:03 Source: patient Mode of arrival: Ambulatory Limitations: No Limitations - History of Present Illness Initial comments: Patient is a 19-year-old -[place] female with no past medical history except anxiety and depression who presents to ED with complaint of acute onset persistent intermittent nausea and vomiting, dizziness and lightheadedness and headache for the last 3 days. Patient states that the last 12 hours her symptoms are worse and that she also had subjective fever and chills. Patient denies chest pain, shortness of breath, abdominal pain, sore throat, sinus congestion, change in vision, syncopeor cough. MD Complaint: lightheadedness, headache, nausea and vomiting, subjective fever -: Sudden, days(s) (3) Location: head, chest Radiation: non-radiation Severity scale (0 -10): 9 Quality: aching, sharp, constant Consistency: constant Improves with: none Worsens with: none Associated Symptoms: denies other symptoms, cough, fever/chills, headaches, loss of appetite, nausea/vomiting. denies: confusion, chest pain, diaphoresis, malaise, shortness of breath, syncope, weakness Treatments Prior to Arrival: none - Related Data Home Medications Medication Instructions Recorded Confirmed Last Taken Pnv,Calcium 72/Iron/Folic Acid 1 tab PO DAILY 12/07/17 09/24/18 01/31/18 [ Plus Tablet] Previous Rx's Medication Instructions Recorded Last Taken Type FLUoxetine [PROzac] 20 mg PO QAM #30 capsule 09/26/18 Unknown Rx Ibuprofen [Motrin] 600 mg PO Q8H PRN #20 tablet 05/23/19 Unknown Rx Meclizine [Antivert] 25 mg PO Q8H PRN #30 tablet 05/23/19 Unknown Rx Allergies Allergy/AdvReac Type Severity Reaction Status Date / Time pollen extracts Allergy Shortness Verified 08/31/18 17:53 of Breath raspberry Allergy Rash Verified 08/31/18 17:53 ED Review of Systems ROS: Stated complaint: FLU LIKE SYMPTOMS Other details as noted in HPI Constitutional: malaise. denies: chills, fever Eyes: denies: eye pain, eye discharge, vision change ENT: congestion. denies: ear pain, throat pain Respiratory: denies: cough, shortness of breath, SOB with exertion, SOB at rest, wheezing Cardiovascular: denies: chest pain, palpitations, dyspnea on exertion, syncope, paroxysmal nocturnal dyspnea Endocrine: no symptoms reported Gastrointestinal: nausea, vomiting. denies: abdominal pain, diarrhea, constipation, melena, hematochezia Genitourinary: denies: urgency, dysuria, discharge Musculoskeletal: denies: back pain, joint swelling, arthralgia Skin: denies: rash, lesions Neurological: headache, other (lightheadedness). denies: weakness, paresthesias, abnormal gait, vertigo Psychiatric: denies: anxiety, depression Hematological/Lymphatic: denies: easy bleeding, easy bruising ED Past Medical Hx - Past Medical History Previous Medical History?: Yes Hx Psychiatric Treatment: Yes - Surgical History Past Surgical History?: No - Social History Smoking Status: Never Smoker Substance Use Type: None - Medications Home Medications: Home Medications Medication Instructions Recorded Confirmed Last Taken Type Pnv,Calcium 72/Iron/Folic Acid 1 tab PO DAILY 12/07/17 09/24/18 01/31/18 History [ Plus Tablet] FLUoxetine [PROzac] 20 mg PO QAM #30 capsule 09/26/18 Unknown Rx Ibuprofen [Motrin] 600 mg PO Q8H PRN #20 tablet 05/23/19 Unknown Rx Meclizine [Antivert] 25 mg PO Q8H PRN #30 tablet 05/23/19 Unknown Rx ED Physical Exam - General Limitations: No Limitations General appearance: alert, in no apparent distress - Head Head exam: Present: atraumatic, normocephalic, normal inspection - Eye Eye exam: Present: normal appearance, PERRL, EOMI. Absent: scleral icterus, conjunctival injection, nystagmus, periorbital swelling, periorbital tenderness Pupils: Present: normal accommodation - ENT ENT exam: Present: normal exam, normal orophraynx, mucous membranes moist, TM's normal bilaterally, normal external ear exam - Neck Neck exam: Present: normal inspection, full ROM. Absent: tenderness, m eningismus, lymphadenopathy, thyromegaly - Respiratory Respiratory exam: Present: normal lung sounds bilaterally. Absent: respiratory distress, wheezes, rales, stridor, chest wall tenderness, decreased breath sounds, prolonged expiratory - Cardiovascular Cardiovascular Exam: Present: regular rate, normal rhythm, normal heart sounds. Absent: systolic murmur, diastolic murmur, rubs, gallop - GI/Abdominal GI/Abdominal exam: Present: soft, normal bowel sounds. Absent: tenderness, guarding, rebound, hyperactive bowel sounds, hypoactive bowel sounds, mass, hernia - Extremities Exam Extremities exam: Present: normal inspection, full ROM, normal capillary refill - Back Exam Back exam: Present: normal inspection, full ROM. Absent: CVA tenderness (L), muscle spasm, paraspinal tenderness - Neurological Exam Neurological exam: Present: alert, oriented X3, CN II-XII intact, normal gait, reflexes normal - Psychiatric Psychiatric exam: Present: normal affect, normal mood - Skin Skin exam: Present: warm, dry, intact, normal color. Absent: rash ED Course Vital Signs 05/22/19 05/23/19 19:03 00:55 Temperature 98.5 F Pulse Rate 83 Respiratory 19 18 Rate Blood Pressure 119/57 O2 Sat by Pulse 99 Oximetry - Reevaluation(s) Reevaluation #1: 05/23/19 02:05 This is a 19 year-old female who presented to the ED with persistent nausea and vomiting, subjective fever and chills, lightheadedness and dizziness for 3 days. In the ED, patient is alert and oriented 3 and is not in distress. Lab test results are reviewed and are all nonactionable. Chest x- ray shows no acute cardiopulmonary abnormalities or pneumonitis. The patient was treated with fluids, also treated for pain and nausea and vomiting. Patient's symptoms are likely viral, hands patient was discharged home on medications and advised to drink plenty of fluids and follow-up with her primary care physician in 5-7 days for reevaluation. She was advised to return to the ED immediately if symptoms get worse. ED Medical Decision Making - Lab Data Result diagrams: 05/22/19 21:23 05/22/19 21:23 - Radiology Data Radiology results: report reviewed, image reviewed Chest x-ray shows no acute cardiopulmonary abnormalities or pneumonitis. - Medical Decision Making This is a 19 year-old female who presented to the ED with pers istent nausea and vomiting, subjective fever and chills, lightheadedness and dizziness for 3 days. In the ED, patient is alert and oriented 3 and is not in distress. Lab test results are reviewed and are all nonactionable. Chest x- ray shows no acute cardiopulmonary abnormalities or pneumonitis. The patient was treated with fluids, also treated for pain and nausea and vomiting. Patient's symptoms are likely viral, hands patient was discharged home on medications and advised to drink plenty of fluids and follow-up with her primary care physician in 5-7 days for reevaluation. She was advised to return to the ED immediately if symptoms get worse. - Differential Diagnosis lightheadedness, dizziness, acute URI; Vomiting; Critical care attestation.: If time is entered above; I have spent that time in minutes in the direct care of this critically ill patient, excluding procedure time. ED Disposition Clinical Impression: Dizziness and giddiness, Nausea and vomiting in adult Disposition: DC-01 TO HOME OR SELFCARE Is pt being admited?: No Does the pt Need Aspirin: No Condition: Stable Instructions: Acute Nausea and Vomiting (ED), Lightheadedness (ED), Dizziness ( ED) Additional Instructions: Take medications with food, drink plenty of fluids and follow up with your primary care physician in 7-10 days for reevaluation. Return to the ED immediately if symptoms get worse. Prescriptions: Meclizine [Antivert] 25 mg PO Q8H PRN #30 tablet PRN Reason: Vertigo Ibuprofen [Motrin] 600 mg PO Q8H PRN #20 tablet PRN Reason: Pain Referrals: PRIMARY CARE, [Primary Care Provider] - 3-5 Days Time of Disposition: 02:08 Print Language: EGYPTIAN
[2019-05-23 02:43] VITALS: BP 106/58
== END 2019-05-23 02:25 | disposition home or self-care (01) ==
LOC: ED 18:53
DX: R42 Dizziness and giddiness (principal); R11.2 Nausea with vomiting, unspecified; F41.9 Anxiety disorder, unspecified; F32.9 Major depressive disorder, single episode, unspecified; Z79.899 Other long term (current) drug therapy; Z91.018 Allergy to other foods
CPT/HCPCS: 36415; 71046; 80053; 80307; 81001; 84484; 85025; 93005; 93010; 96374; 96375; 99284; J1885; J2405

== ENCOUNTER 2019-07-29 20:28 | Emergency (ER) | payer OTHER ==
--- NOTE | 2019-07-29 22:05 | Event Note ---
ED Screening Note ED Screening Note: pt states she began having spotting today states she had a depo provera injection in march states that she is approximately 17 weeks went to [facility] and had a US PMHx none no allergies to meds LNMP: february /P:1/A:0 This initial assessment/diagnostic orders/clinical plan/treatment(s) is/are subject to change based on patients health status, clinical progression and re- assessment by fellow clinical providers in the ED. Further treatment and workup at subsequent clinical providers discretion. Patient/guardian urged not to elope from the ED as their condition may be serious if not clinically assessed and managed. Initial orders include: labs, UA, US
[2019-07-29 23:01] LABS: Basophils % (Auto) 0.2 % (0.0-1.8); Eosinophils % (Auto) 0.2 % (0.0-4.3); Hematocrit 33.2 % (30.3-42.9); Hemoglobin 11.1 gm/dl (10.1-14.3); Lymphocytes # (Auto) 2.4 K/mm3 (1.2-5.4); Lymphocytes % (Auto) 22.7 % (13.4-35.0); Mean Corpuscular HGB Conc 33 % (30-34); Mean Corpuscular Volume 96 fl (79-97); Monocytes # (Auto) 0.9 K/mm3 (0.0-0.8); Monocytes % (Auto) 8.3 % (0.0-7.3); Platelet Count 292 K/mm3 (140-440); Red Blood Count 3.45 M/mm3 (3.65-5.03); Red Cell Distribution Width 14.5 % (13.2-15.2)
[2019-07-30 00:03] LABS: Bilirubin,Urine NEG (Negative); Blood,Urine NEG (Negative); Calcium Oxalate Crystals,Urine FEW; Color,Urine Yellow (Yellow); Mucus,Urine 1+ /HPF; Protein,Urine <15 mg/dL mg/dL (Negative)
--- NOTE | 2019-07-30 00:17 | Ultrasound Report ---
TRANSABDOMINAL OB PELVIC ULTRASOUND INDICATION / CLINICAL INFORMATION: Spotting. COMPARISON: None available. FINDINGS: There is a single intrauterine with an estimated sonographic gestational age of 17 weeks 3 days and ELDER of 01/03/2020. Clinical dates are 22 weeks 3 days. presentation is breech. The feta l heart rate is 149 bpm. There is complete placenta previa. The placental grade is 0. Amniotic fluid volume is normal. The uterine cervix measures 6.2 cm in length and the internal os is closed. The ovaries are normal. N o anomalies are identified. IMPRESSION: 1. Single viable 17 week 3 day intrauterine . 2. Complete placenta previa. Signer Name: Ze Galindo MD Signed: 07/30/2019 12:13 AM Workstation Name: [id number]
--- NOTE | 2019-07-30 00:55 | Emergency Department Report ---
HPI - General Chief Complaint: Vaginal Bleeding Time Seen by Provider: 07/29/19 22:03 - HPI HPI: Room 34 The patient is a 19-year-old female presenting with a chief complaint of abdominal pain and vaginal bleeding. The patient states 2 days ago she had some light vaginal bleeding but it stopped. Patient states she did not have to use a maxi pad. The patient states today she again had light bleeding but again did not need to use a maxi pad. Patient states she had pain in the right side of her abdomen and the last approximately 5 minutes and was sharp in nature. Location: [See above] Duration: [See above] Quality: [See above] Severity: [See above] Timing: [See above] Context: [See above] Modifying factors: [See above] Associated signs and symptoms: [see above] ED Past Medical Hx - Past Medical History Previous Medical History?: Yes Hx Psychiatric Treatment: Yes - Surgical History Past Surgical History?: No - Family History Family history: no significant - Social History Smoking Status: Never Smoker Substance Use Type: None (denies illicit drug use) - Medications Home Medications: Home Medications Medication Instructions Recorded Confirmed Last Taken Type Pnv,Calcium 72/Iron/Folic Acid 1 tab PO DAILY 12/07/17 09/24/18 01/31/18 History [ Plus Tablet] FLUoxetine [PROzac] 20 mg PO QAM #30 capsule 09/26/18 Unknown Rx Ibuprofen [Motrin] 600 mg PO Q8H PRN #20 tablet 05/23/19 Unknown Rx Meclizine [Antivert] 25 mg PO Q8H PRN #30 tablet 05/23/19 Unknown Rx Nitrofurantoin [place]/M-Cryst 100 mg PO Q12HR #14 capsule 07/30/19 Unknown Rx [Macrobid CAP] ED Review of Systems ROS: Stated complaint: 17WKS PREG/VAG BLEEDING Other details as noted in HPI Constitutional: no symptoms reported Eyes: denies: eye pain ENT: denies: throat pain Respiratory: no symptoms reported Cardiovascular: denies: chest pain Endocrine: no symptoms reported Gastrointestinal: abdominal pain Genitourinary: abnormal menses Neurological: denies: headache Physical Exam - Physical Exam Vital Signs: Vital Signs 07/29/19 07/29/19 20:52 22:07 Temperature 98.8 F 98.8 F Pulse Rate 83 78 Respiratory 18 18 Rate Blood Pressure 110/53 110/53 O2 Sat by Pulse 100 100 Oximetry Physical Exam: GENERAL: The patient is well-developed well-nourished female sitting in chair not appearing to be in acute distress. [] HEENT: Normocephalic. Atraumatic. Extraocular motions are intact. Patient has moist mucous membranes. NECK: Supple. Trachea midline CHEST/LUNGS: Clear to auscultation. There is no respiratory distress noted. HEART/CARDIOVASCULAR: Regular. There is no tachycardia. There is no gallop rub or murmur. ABDOMEN: Abdomen is soft, but gravid. Patient has normal bowel sounds. SKIN: There is no rash. There is no edema. There is no diaphoresis. NEURO: The patient is awake, alert, and oriented. The patient is cooperative. The patient has normal speech MUSCULOSKELETAL: There is no evidence of acute injury. ED Course Vital Signs 07/29/19 07/29/19 20:52 22:07 Temperature 98.8 F 98.8 F Pulse Rate 83 78 Respiratory 18 18 Rate Blood Pressure 110/53 110/53 O2 Sat by Pulse 100 100 Oximetry - Consultations Consultation #1: 07/30/19 00:51 [employer] paged 07/30/19 01:[address] Patel- no immediate intervention necessary. Palpation refrain from intercourse or anything that may jar the cervix. Patient should follow up with her ELECT[employer]OMECH[employer] EQUIPMENT TESTER [facility] ED Medical Decision Making - Lab Data Result diagrams: 07/29/19 22:34 Laboratory Tests 07/29/19 07/29/19 07/29/19 22:34 22:34 22:34 WBC 10.6 RBC 3.45 L Hgb 11.1 Hct 33.2 MCV 96 MCH 32 MCHC 33 RDW 14.5 Plt Count 292 Lymph % (Auto) 22.7 [place] % (Auto) 8.3 H Eos % (Auto) 0.2 Baso % (Auto) 0.2 Lymph # 2.4 [place] # 0.9 H Eos # 0.0 Baso # 0.0 Seg Neutrophils % 68.6 Seg Neutrophils # 7.3 HCG, Quant 99690 H Urine Color Urine Turbidity Urine pH Ur Specific [place] Urine Protein Urine Glucose (UA) Urine Ketones Urine Blood Urine Nitrite Urine Bilirubin Urine Urobilinogen Ur Leukocyte Esterase Urine WBC (Auto) Urine RBC (Auto) U Epithel Cells (Auto) Calcium Oxalate Crystal Urine Mucus Blood Type A POSITIVE 07/29/19 23:23 WBC RBC Hgb Hct MCV MCH MCHC RDW Plt Count Lymph % (Auto) [place] % (Auto) Eos % (Auto) Baso % (Auto) Lymph # [place] # Eos # Baso # Seg Neutrophils % Seg Neutrophils # HCG, Quant Urine Color Yellow Urine Turbidity Slightly-cloudy Urine pH 6.0 Ur Specific [place] 1.024 Urine Protein <15 mg/dl Urine Glucose (UA) Neg Urine Ketones Neg Urine Blood Neg Urine Nitrite Neg Urine Bilirubin Neg Urine Urobilinogen 4.0 Ur Leukocyte Esterase Mod Urine WBC (Auto) 12.0 H Urine RBC (Auto) 9.0 U Epithel Cells (Auto) 1.0 Calcium Oxalate Crystal Few Urine Mucus 1+ Blood Type - Radiology Data Radiology results: report reviewed (pelvic ultrasound), image reviewed (pelvic ultrasound) [facility] [address] [place] [address] Ultrasound Report Signed Patient: HEBER BARRON MR#: [id number] : 2000 Acct:[id number] Age/Sex: 19 / F ADM Date: 07/29/19 Loc: ED Attending Dr: Ordering Physician: ASHLEY REID Date of Service: 07/29/19 Procedure(s): US OB >= 14 weeks Fetus Accession Number(s): [id number] cc: ASHLEY REID TRANSABDOMINAL OB PELVIC ULTRASOUND INDICATION / CLINICAL INFORMATION: Spotting. COMPARISON: None available. FINDINGS: There is a single intrauterine with an estimated sonographic gestational age of 17 weeks 3 days and ELDER of 01/03/2020. Clinical dates are 22 weeks 3 days. presentation is breech. The heart rate is 149 bpm. There is complete placenta previa. The placental grade is 0. Amniotic fluid volume is normal. The uterine cervix measures 6.2 cm in length and the internal os is closed. The ovaries are normal. No anomalies are identified. IMPRESSION: 1. Single viable 17 week 3 day intrauterine . 2. Complete placenta previa. Signer Name: Ze Galindo MD Signed: 07/30/2019 12:13 AM Workstation Name: [id number] Transcribed By: RT Dictated By: Ze Galindo MD Electronically Authenticated By: Ze Galindo MD Signed Date/Time: 07/30/19 0013 DD/ 0009 TD/TT: - Differential Diagnosis threatened , placenta previa Critical care attestation.: If time is entered above; I have spent that time in minutes in the direct care of this critically ill patient, excluding procedure time. ED Disposition Clinical Impression: Threatened , Placenta previa, UTI (urinary tract infection) Disposition: TO HOME OR SELFCARE Is pt being admited?: No Does the pt Need Aspirin: No Condition: Stable Instructions: Placenta Previa (ED) Additional Instructions: You should refrain from vaginal intercourse or any action that may cause motion of the cervix as this may precipitate bleeding. Return to the emergency department should you develop worsening symptoms, inability to tolerate food or liquids, high fever or any other concerns Prescriptions: Nitrofurantoin [place]/M-Cryst [Macrobid CAP] 100 mg PO Q12HR #14 capsule Referrals: ROSA WELLS MD [Primary Care Provider] - 3-5 Days your, [employer]STER [Other] - [facility] Time of Disposition: 01:36
[2019-07-30 02:10] VITALS: BP 111/62
== END 2019-07-30 02:10 | disposition home or self-care (01) ==
LOC: ED 20:28
DX: O20.0 Threatened abortion (principal); O23.42 Unspecified infection of urinary tract in pregnancy, second trimester; Z79.899 Other long term (current) drug therapy; Z88.8 Allergy status to other drugs, medicaments and biological substances; Z3A.17 17 weeks gestation of pregnancy
CPT/HCPCS: 36415; 76805; 81001; 84702; 85025; 86900; 86901; 87086

== ENCOUNTER 2019-07-31 14:16 | Emergency (ER) | payer OTHER ==
--- NOTE | 2019-07-31 16:17 | Event Note ---
ED Screening Note ED Screening Note: states she is 17 weeks states n/v that began this morning she is tolerating po intake she has received no care states she is still having light spotting abd discomfort /P:1/A:0 This initial assessment/diagnostic orders/clinical plan/treatment(s) is/are subject to change based on patients health status, clinical progression and re- assessment by fellow clinical providers in the ED. Further treatment and workup at subsequent clinical providers discretion. Patient/guardian urged not to elope from the ED as their condition may be serious if not clinically assessed and managed. Initial orders include: labs, UA, US
[2019-07-31 16:46] LABS: Basophils % (Auto) 0.3 % (0.0-1.8); Eosinophils % (Auto) 0.1 % (0.0-4.3); Hematocrit 35.8 % (30.3-42.9); Hemoglobin 11.7 gm/dl (10.1-14.3); Lymphocytes # (Auto) 1.5 K/mm3 (1.2-5.4); Lymphocytes % (Auto) 17.2 % (13.4-35.0); Mean Corpuscular HGB Conc 33 % (30-34); Mean Corpuscular Volume 96 fl (79-97); Monocytes # (Auto) 0.4 K/mm3 (0.0-0.8); Monocytes % (Auto) 5.1 % (0.0-7.3); Platelet Count 298 K/mm3 (140-440); Red Blood Count 3.73 M/mm3 (3.65-5.03); Red Cell Distribution Width 14.1 % (13.2-15.2)
[2019-07-31 17:12] LABS: Bacteria,Urine 1+ /HPF (Negative); Bilirubin,Urine NEG (Negative); Blood,Urine NEG (Negative); Color,Urine Yellow (Yellow); Mucus,Urine 2+ /HPF; Protein,Urine <15 mg/dL mg/dL (Negative); Urobilinogen,Urine < 2.0 mg/dL (<2.0)
[2019-07-31 17:13] LABS: Alanine Aminotransferase 7 units/L (7-56); Albumin 3.9 g/dL (3.9-5); BUN/Creatinine Ratio 13; Blood Urea Nitrogen 4 mg/dL (7-17); Calcium 9.4 mg/dL (8.4-10.2); Hemolysis Index 5
--- NOTE | 2019-07-31 19:19 | Ultrasound Report ---
ULTRASOUND OBSTETRIC Indication: , pain, spotting COMPARISON: Ultrasound dated 07/29/2019 Findings: There is a single intrauterine . BPD = 3.7 cm = 17 weeks, 3 day(s). Head circumference = 13.8 cm = 17 weeks, 2 day(s). Abdominal circumference = 12.4 cm = 18 weeks, 0 day(s). Femur length = 2.6 cm = 17 weeks, 6 day(s). Overall estimated sonographic age = 17 weeks, 5 day(s). heart rate is 146 beats per minute. Estimated weight is 214 grams position is cephalic. Cervix appears closed. Cervix measures 4.9 cm in length Study performed 2 days ago there appear to be complete placenta previa. On today's examination do not see the placenta covering the cervical os septum appears to be located anteriorly. Amniotic fluid volume appears normal. Impression: 1. Single living intrauterine with estimated sonographic age of 17 weeks, 5 day(s). 2. On the ultrasound performed 2 days ago there appear to be a complete placenta previa. The placenta appears to be anterior and I do not see placenta previa on today's images. With this patient's histo ry of continued pain and spotting, this will need to be followed closely as the progresses. Currently, the cervix is closed and is normal in length. Signer Name: Dennys Dior MD Signed: 07/31/2019 7:15 PM Workstation Name: [id number]
[2019-07-31] MEDS ORDERED: SODIUM CHLORIDE 0.9% 1000 ML 1,000 ML IV ONE (22:11)
[2019-07-31] MEDS ORDERED: ONDANSETRON 4 MG/2 ML INJ IV ONE (22:12)
[2019-07-31] MEDS ORDERED: MORPHINE 2 MG/1 ML INJ IV ONE (22:12)
[2019-07-31] MEDS ORDERED: FAMOTIDINE 20 MG/2 ML INJ IV ONE (22:12)
[2019-07-31 22:13] VITALS: BP 112/63
[2019-07-31] MEDS ORDERED: cefTRIAXone/NS 1 GM/50 ML 1 GM/50 ML BAG IV ONE (22:13)
--- NOTE | 2019-08-01 00:54 | Emergency Department Report ---
ED Female HPI - General Chief complaint: Vaginal Bleeding Stated complaint: 17WKS PREG/VOMITING BLOOD Time Seen by Provider: 07/31/19 16:17 Source: patient Mode of arrival: Ambulatory Limitations: No Limitations - History of Present Illness Initial comments: Patient is a A0 19-year-old [place] Citizen female who is approximately 17 weeks gestation who presented to the ED with acute onset persistent vaginal bleeding, pelvic pain and intractable nausea and vomiting for the last 1 week, worse in the last 2 days. Patient was initially evaluated for the same about 2 days ago and diagnosed with placenta previa and UTI. Patient states that about 12 hours ago the nausea and vomiting got worse and that she'll be given anything down because of nausea and vomiting. Patient states that she has a little hard to episodes of mild hematemesis and was concerned so she decided come to the ED for reevaluation. Patient states that she is currently on Macrobid for UTI. Patient denies dizziness, lightheadedness, chest pain, shortness of breath, sore throat, fever, chills, dysuria, urinary frequency and urgency, vaginal discharge, cough, headache, or syncope. MD Complaint: vaginal bleeding, dysuria, pelvic pain, other (nausea and vomiting) -: Sudden, week(s) (1) Location: suprapubic, other (vaginal ) Radiation: suprapubic Severity: severe Severity scale (0 -10): 7 Quality: cramping, sharp Consistency: constant Improves with: none Worsens with: none Are you Now?: Yes (17 weeks gestation) Associated Symptoms: denies other symptoms, vaginal bleeding, abdominal pain, nausea/vomiting, loss of appetite, dysuria, hematuria. denies: vaginal di scharge, fever/chills, headaches, rash, shortness of breath, syncope, weakness - Related Data Sexually active: Yes : 2 Para: 1 A: 0 Home Medications Medication Instructions Recorded Confirmed Last Taken Pnv,Calcium 72/Iron/Folic Acid 1 tab PO DAILY 12/07/17 09/24/18 01/31/18 [ Plus Tablet] Previous Rx's Medication Instructions Recorded Last Taken Type FLUoxetine [PROzac] 20 mg PO QAM #30 capsule 09/26/18 Unknown Rx Ibuprofen [Motrin] 600 mg PO Q8H PRN #20 tablet 05/23/19 Unknown Rx Meclizine [Antivert] 25 mg PO Q8H PRN #30 tablet 05/23/19 Unknown Rx Nitrofurantoin [place]/M-Cryst 100 mg PO Q12HR #14 capsule 07/30/19 Unknown Rx [Macrobid CAP] Acetaminophen [Acetaminophen TAB] 500 mg PO Q6HR PRN #30 tablet 08/01/19 Unknown Rx Dicyclomine [Bentyl] 20 mg PO Q6H PRN #24 tablet 08/01/19 Unknown Rx Famotidine [Pepcid] 20 mg PO Q12H #40 tablet 08/01/19 Unknown Rx Promethazine HCl [Phenergan SUPPOS] 25 mg RC Q6H PRN #15 supp.rect 08/01/19 Unknown Rx Promethazine [Phenergan] 25 mg PO Q6HR PRN #30 tab 08/01/19 Unknown Rx cephALEXin [Keflex] 500 mg PO Q8HR #30 cap 08/01/19 Unknown Rx Allergies Allergy/AdvReac Type Severity Reaction Status Date / Time pollen extracts Allergy Shortness Verified 08/31/18 17:53 of Breath raspberry Allergy Rash Verified 08/31/18 17:53 ED Review of Systems ROS: Stated complaint: 17WKS PREG/VOMITING BLOOD Other details as noted in HPI Constitutional: denies: chills, fever Eyes: denies: eye pain, eye discharge, vision change ENT: denies: ear pain, throat pain Respiratory: denies: cough, shortness of breath, wheezing Cardiovascular: denies: chest pain, palpitations Endocrine: no symptoms reported Gastrointestinal: abdominal pain, nausea, vomiting. denies: diarrhea Genitourinary: abnormal menses (vaginal bleeding). denies: urgency, dysuria, discharge Musculoskeletal: denies: back pain, joint swelling, arthralgia Skin: denies: rash, lesions Neurological: denies: headache, weakness, paresthesias Psychiatric: denies: anxiety, depression Hematological/Lymphatic: denies: easy bleeding, easy bruising ED Past Medical Hx - Past Medical History Hx Psychiatric Treatment: Yes - Social History Smoking Status: Never Smoker Substance Use Type: None - Medications Home Medications: Home Medications Medication Instructions Recorded Confirmed Last Taken Type Pnv,Calcium 72/Iron/Folic Acid 1 tab PO DAILY 12/07/17 09/24/18 01/31/18 History [ Plus Tablet] FLUoxetine [PROzac] 20 mg PO QAM #30 capsule 09/26/18 Unknown Rx Ibuprofen [Motrin] 600 mg PO Q8H PRN #20 tablet 05/23/19 Unknown Rx Meclizine [Antivert] 25 mg PO Q8H PRN #30 tablet 05/23/19 Unknown Rx Nitrofurantoin [place]/M-Cryst 100 mg PO Q12HR #14 capsule 07/30/19 Unknown Rx [Macrobid CAP] Acetaminophen [Acetaminophen TAB] 500 mg PO Q6HR PRN #30 tablet 08/01/19 Unknown Rx Dicyclomine [Bentyl] 20 mg PO Q6H PRN #24 tablet 08/01/19 Unknown Rx Famotidine [Pepcid] 20 mg PO Q12H #40 tablet 08/01/19 Unknown Rx Promethazine HCl [Phenergan SUPPOS] 25 mg RC Q6H PRN #15 supp.rect 08/01/19 Unknown Rx Promethazine [Phenergan] 25 mg PO Q6HR PRN #30 tab 08/01/19 Unknown Rx cephALEXin [Keflex] 500 mg PO Q8HR #30 cap 08/01/19 Unknown Rx ED Physical Exam - General Limitations: No Limitations General appearance: alert, in no apparent distress - Head Head exam: Present: atraumatic, normocephalic, normal inspection - Eye Eye exam: Present: normal appearance, PERRL, EOMI - ENT ENT exam: Present: normal exam, normal orophraynx, mucous membranes moist, TM's normal bilaterally, normal external ear exam - Neck Neck exam: Present: normal inspection, full ROM. Absent: tenderness, meningismus, lymphadenopathy, thyromegaly - Respiratory Respiratory exam: Present: normal lung sounds bilaterally. Absent: respiratory distress, wheezes, rales, rhonchi, chest wall tenderness, accessory muscle use, prolonged expiratory - Cardiovascular Cardiovascular Exam: Present: regular rate, normal rhythm, normal heart sounds. Absent: systolic murmur, diastolic murmur, rubs, gallop - GI/Abdominal GI/Abdominal exam: Present: soft, normal bowel sounds. Absent: tenderness, guarding, rebound, hyperactive bowel sounds, hypoactive bowel sounds - Bi-manual exam: Present: other (pelvic exam deferred) - Extremities Exam Extremities exam: Present: normal inspection, full ROM, normal capillary refill - Back Exam Back exam: Present: normal inspection, full ROM. Absent: tenderness, CVA tenderness (R), CVA tenderness (L), muscle spasm - Neurological Exam Neurological exam: Present: alert, oriented X3, CN II-XII intact, normal gait, reflexes normal - Psychiatric Psychiatric exam: Present: normal affect, normal mood - Skin Skin exam: Present: warm, dry, intact, normal color. Absent: rash ED Course Vital Signs 07/31/19 07/31/19 08/01/19 14:27 22:48 01:35 Temperature 98.6 F Pulse Rate 85 73 Respiratory 18 20 15 Rate Blood Pressure 112/63 O2 Sat by Pulse 99 99 Oximetry ED Medical Decision Making - Lab Data Result diagrams: 07/31/19 16:32 07/31/19 16:32 - Radiology Data Radiology results: report reviewed, image reviewed Findings [facility] [address] [place] [address] Ultrasound Report Signed Patient: HEBER BARRON MR#: [id number] : 2000 Acct:[id number] Age/Sex: 19 / F ADM Date: 07/31/19 Loc: ED Attending Dr: Ordering Physician: ASHLEY REID Date of Service: 07/31/19 Procedure(s): US OB >= 14 weeks Fetus Accession Number(s): [id number] cc: ASHLEY REID ULTRASOUND OBSTETRIC Indication: , pain, spotting COMPARISON: Ultrasound dated 07/29/2019 Findings: There is a single intrauterine . BPD = 3.7 cm = 17 weeks, 3 day(s). Head circumference = 13.8 cm = 17 weeks, 2 day(s). Abdominal circumference = 12.4 cm = 18 weeks, 0 day(s). Femur length = 2.6 cm = 17 weeks, 6 day(s). Overall estimated sonographic age = 17 weeks, 5 day(s). heart rate is 146 beats per minute. Estimated weight is 214 grams position is cephalic. Cervix appears closed. Cervix measures 4.9 cm in length Study performed 2 days ago there appear to be complete placenta previa. On today's examination do not see the placenta covering the cervical os septum appears to be located anteriorly. Amniotic fluid volume appears normal. Impression: 1. Single living intrauterine with estimated sonographic age of 17 weeks, 5 day(s). 2. On the ultrasound performed 2 days ago there appear to be a complete placenta previa. The placenta appears to be anterior and I do not see placenta previa on today's images. With this patient's history of continued pain and spotting, this will need to be followed closely as the progresses. Currently, the cervix is closed and is normal in length. Signer Name: Dennys Dior MD Signed: 07/31/2019 7:15 PM Workstation Name: [id number] Transcribed By: Dictated By: Dennys Dior MD Electronically Authenticated By: Dennys Dior MD Signed Date/Time: 07/31/191914 DD/ 07 TD/TT: - Medical Decision Making This is a A0 19-year-old [place] Citizen female who is approximately 17 weeks gesta tion who presented to the ED with acute onset persistent vaginal bleeding, pelvic pain and intractable nausea and vomiting for the last 1 week, worse in the last 2 days. In the ED, patient is alert and oriented 3 and is not in distress. Lab test results were reviewed and [place] [address], mild hyponatremia of 134 mmol per liter and urinary tract infection in the urinalysis. The pelvic ultrasound performed in the ED shows a single living intrauterine with estimated sonographic age of 17 weeks, 5 day(s). On the ultrasound performed 2 days ago there appear to be a complete placenta previa. The placenta appears to be anterior and I do not see placenta previa on today's images. With this patient's history of continued pain and spotting, this will need to be followed closely as the progresses. Currently, the cervix is closed and is normal in length. heart rate is 1 46 bpm. Patient was treated in the ED for nausea and vomiting and pain, also given normal saline 1 L IV bolus, and Rocephin 1 g IV 1. On reevaluation, patient felt better, nausea and vomiting resolved and patient was able to drink fluids by mouth and also ate a taco while in the ED. Patient was discharged home and advised to follow-up with her [employer] physician in 3-5 days for reevaluation. Patient was also advised to maintain a complete pelvic rest with no physical activity or strenuous activities on sexual intercourse. Patient was discharged home on antiemetics and advised to drink plenty of fluids and take medication pain as needed. Patient was advised to ret urn to the ED immediately if symptoms get worse. - Differential Diagnosis Threatened miscarriage; UTI; Dehydration; Placenta previa; Subchorionic ble Critical care attestation.: If time is entered above; I have spent that time in minutes in the direct care of this critically ill patient, excluding procedure time. ED Disposition Clinical Impression: Vaginal bleeding in , Hyperemesis gravidarum, Acute urinary tract infection, Threatened miscarriage, Abdominal pain during in Disposition: - TO HOME OR SELFCARE Is pt being admited?: No Does the pt Need Aspirin: No Condition: Stable Instructions: Threatened Miscarriage (ED), Hyperemesis Gravidarum (ED), Urinary Tract Infection in Women (ED), Abdominal Pain in (ED) Additional Instructions: Maintain a complete pelvic rest with no heavy lifting or strenuous physical activities or sexual intercourse. Take medication as advised, drink plenty of fluids and follow-up with your regular physician in 5-7 days for reevaluation. Return to the ED immediately if symptoms get worse. Prescriptions: Acetaminophen [Acetaminophen TAB] 500 mg PO Q6HR PRN #30 tablet PRN Reason: Pain , Severe (7-10) Dicyclomine [Bentyl] 20 mg PO Q6H PRN #24 tablet PRN Reason: Pain , Severe (7-10) cephALEXin [Keflex] 500 mg PO Q8HR #30 cap Famotidine [Pepcid] 20 mg PO Q12H #40 tablet Promethazine [Phenergan] 25 mg PO Q6HR PRN #30 tab PRN Reason: Nausea Promethazine HCl [Phenergan SUPPOS] 25 mg RC Q6H PRN #15 supp.rect PRN Reason: Nausea Referrals: PRIMARY CARE,MD [Primary Care Provider] - 3-5 Days Forms: Accompanied Note, Work/School Release Form(ED) Time of Disposition: 00:54 Print Language: FRENCH
== END 2019-08-01 01:35 | disposition home or self-care (01) ==
LOC: ED 14:16
DX: O20.0 Threatened abortion (principal); O21.0 Mild hyperemesis gravidarum; Z3A.17 17 weeks gestation of pregnancy; Z79.899 Other long term (current) drug therapy; Z91.038 Other insect allergy status; Z91.018 Allergy to other foods
CPT/HCPCS: 36415; 76805; 80053; 81001; 83690; 84702; 85025; 87086; 96365; 96375; 99284; J0696; J2270; J2405; J7030

== ENCOUNTER 2019-09-03 14:59 | Outpatient (CLI) | payer OTHER ==
[2019-09-03 15:56] VITALS: BP 107/59
[2019-09-03] MEDS ORDERED: LACTATED RINGERS 1,000 ML IV SCH (16:00)
[2019-09-03 16:15] LABS: Bacteria,Urine 1+ /HPF (Negative); Mucus,Urine FEW /HPF
[2019-09-03 16:16] LABS: Bilirubin,Urine Negative (Negative); Blood,Urine Trace (Negative); Color,Urine Straw (Yellow)
[2019-09-03 16:17] LABS: Protein,Urine <15 mg/dL mg/dL (Negative)
== END 2019-09-03 16:50 | disposition home or self-care (01) ==
LOC: TRG 14:59
PROVIDERS: ATTEND Obstetrics & Gynecology
DX: O46.8X2 Other antepartum hemorrhage, second trimester (principal); M54.9 Dorsalgia, unspecified; Z3A.22 22 weeks gestation of pregnancy
CPT/HCPCS: 59025; 81001; 87086

== ENCOUNTER 2019-09-30 12:18 | Outpatient (CLI) | payer OTHER ==
[2019-09-30 14:17] VITALS: BP 106/62
[2019-09-30 14:31] LABS: Bilirubin,Urine NEG (Negative); Blood,Urine NEG (Negative); Color,Urine Yellow (Yellow); Mucus,Urine FEW /HPF; Protein,Urine <15 mg/dL mg/dL (Negative); Urobilinogen,Urine < 2.0 mg/dL (<2.0)
[2019-09-30] MEDS ORDERED: NITROFURANTOIN MONOHYD/M-CRYST 100 MG CAP PO ONE (14:38)
--- NOTE | 2019-09-30 14:44 | Event Note ---
Date: 09/30/19 patient resting on bed on phone, does not appear to be in distress. no ctx noted on toco, fht appropriate for gestation. Patient states dated by 17wk u/s at [facility]. patient c/o stabbing pain in right groin c/w round ligament pain. no abdominal tenderness, fever, vaginal discharge. she reports active FM. Will treat for UTI with macrobid while culture is pending. pt instructed to call our office tomorrow to schedule appointment. All questions addressed.
== END 2019-09-30 14:59 | disposition home or self-care (01) ==
LOC: TRG 12:18
PROVIDERS: ATTEND Obstetrics & Gynecology
DX: O47.02 False labor before 37 completed weeks of gestation, second trimester (principal); Z3A.26 26 weeks gestation of pregnancy
CPT/HCPCS: 81001

== ENCOUNTER 2019-10-02 12:19 | Outpatient (CLI) | payer OTHER ==
[2019-10-02] MEDS ORDERED: LACTATED RINGERS 500 ML IV ONE (12:29)
[2019-10-02 12:40] VITALS: BP 111/71
[2019-10-02] MEDS ORDERED: LACTATED RINGERS 1,000 ML IV SCH (13:00)
[2019-10-02 13:17] LABS: Bilirubin,Urine NEG (Negative); Blood,Urine NEG (Negative); Color,Urine Yellow (Yellow); Mucus,Urine FEW /HPF; Protein,Urine <15 mg/dL mg/dL (Negative); Urobilinogen,Urine < 2.0 mg/dL (<2.0)
[2019-10-02] MEDS ORDERED: ALUM-MAG HYDROXIDE-SIMETHICONE 200-200-20MG/5ML ORAL LIQD 30 ML PO PRN (14:30)
--- NOTE | 2019-10-02 16:25 | Event Note ---
Date: 10/02/19 (Pt feeling much better and is ready to go home.) Pt is a 19 y.o. @ 26 wks with c/o of sharp abdominal pain, and "acid reflux" that made her short of breath. She was seen in triage a few days ago and was diagnosed with a UTI and given a prescription for Macrobid, to which she is still taking. She states that her abdominal pain and acid reflux has been going on for 2 days and today it became worse so she presented to triage. EFM was initiated and was category 1 throughout her triage stay. No ctxs noted. Maalox was given for acid reflux and pt states relief. Cervical exam closed/thick/high. Exam glove noted to have with thick yellow discharge after cervical exam. Will send urine down to the lab for GC/CH/Trich. Will call pt to inform her of the results. She was given strict labor precautions and follow up instructions. States that she wants to follow up with [facility] for care and has the number. Encouraged to call and make an appointment. She was discharged home in stable condition and Dr. Melvin updated.
== END 2019-10-02 16:45 | disposition home or self-care (01) ==
LOC: TRG 12:19
PROVIDERS: ATTEND Obstetrics & Gynecology
DX: O99.613 Diseases of the digestive system complicating pregnancy, third trimester (principal); K21.9 Gastro-esophageal reflux disease without esophagitis; O26.892 Other specified pregnancy related conditions, second trimester; R06.02 Shortness of breath; R05 Cough; O13.3 Gestational [pregnancy-induced] hypertension without significant proteinuria, third trimester; O47.03 False labor before 37 completed weeks of gestation, third trimester; Z3A.26 26 weeks gestation of pregnancy
CPT/HCPCS: 81001; 87086; 87210; 87591; 96360; 96361; J7120

== ENCOUNTER 2019-10-09 00:18 | Outpatient (CLI) | payer OTHER ==
[2019-10-09 00:39] VITALS: BP 111/60
--- NOTE | 2019-10-09 02:05 | Ultrasound Report ---
US OB limited INDICATION / CLINICAL INFORMATION: severe bleeding. COMPARISON: 09/29/2019 FINDINGS: A single live fetus is seen in the uterus in cephalic presentation. The placenta is anterior, to the left, grade 1 and free of the os. There is no evidence of placental abruption on this exam. hea rt rate is 142 and MARILYN is 25.2 IMPRESSION: Single live fetus with heart rate 142 in cephalic presentation. MARILYN is increased measuring 25.2 . No evidence of placental abruption on this exam Signer Name: Jose Angel Dallas MD FACR Signed: 10/09/2019 2:00 AM Workstation Name: [id number]
== END 2019-10-09 01:43 | disposition home or self-care (01) ==
LOC: TRG 00:18
PROVIDERS: ATTEND Obstetrics & Gynecology
DX: O67.9 Intrapartum hemorrhage, unspecified (principal); Z3A.27 27 weeks gestation of pregnancy
CPT/HCPCS: 76815

== ENCOUNTER 2019-10-10 17:14 | Outpatient (CLI) | payer OTHER ==
[2019-10-10 17:37] VITALS: BP 111/60
[2019-10-10] MEDS ORDERED: LACTATED RINGERS 1,000 ML IV SCH (18:00)
[2019-10-10 18:43] LABS: Bacteria,Urine 1+ /HPF (Negative); Bilirubin,Urine NEG (Negative); Blood,Urine NEG (Negative); Color,Urine Yellow (Yellow); Mucus,Urine 2+ /HPF; Protein,Urine <15 mg/dL mg/dL (Negative)
== END 2019-10-10 20:23 | disposition home or self-care (01) ==
LOC: TRG 17:14
PROVIDERS: ATTEND Obstetrics & Gynecology
DX: O47.02 False labor before 37 completed weeks of gestation, second trimester (principal); Z3A.27 27 weeks gestation of pregnancy
CPT/HCPCS: 81001; 87086

== ENCOUNTER 2019-10-19 23:59 | Outpatient (CLI) | payer SELFPAY ==
[2019-10-20 00:22] VITALS: BP 113/56
[2019-10-20] MEDS ORDERED: LACTATED RINGERS 500 ML IV ONE (01:00)
== END 2019-10-20 01:50 | disposition home or self-care (01) ==
LOC: TRG 23:59
PROVIDERS: ATTEND Obstetrics & Gynecology
DX: O47.02 False labor before 37 completed weeks of gestation, second trimester (principal); Z3A.29 29 weeks gestation of pregnancy

== ENCOUNTER 2019-12-23 02:04 | Outpatient (CLI) | payer OTHER ==
[2019-12-23 02:26] VITALS: BP 123/71
--- NOTE | 2019-12-23 04:26 | Ultrasound Report ---
ULTRASOUND OBSTETRIC LIMITED ULTRASOUND BIOPHYSICAL PROFILE INDICATION / CLINICAL INFORMATION: spotting. COMPARISON: OB ultrasound from 10/09/2019. FINDINGS: BREATHING MOVEMENT = 0 GROSS BODY MOVEMENT = 2 TONE = 2 QUALITATIVE AMNIOTIC FLUID VOLUME = 2 TOTAL BIOPHYSICAL SCORE = 6/8 PRESENTATION: Cephalic. HEART RATE (beats per minute): 129 ADDITIONAL FINDINGS: None. IMPRESSION: 1. Biophysical Score = 6/8 Signer Name: David Cardona MD Signed: 12/23/2019 4:21 AM Workstation Name: [email or web address]
== END 2019-12-23 04:15 | disposition home or self-care (01) ==
LOC: TRG 02:04 → APU 02:06 → TRG 04:15
PROVIDERS: ATTEND Obstetrics & Gynecology
DX: O47.1 False labor at or after 37 completed weeks of gestation (principal); O46.8X3 Other antepartum hemorrhage, third trimester; Z3A.38 38 weeks gestation of pregnancy
CPT/HCPCS: 59025; 76819

== ENCOUNTER 2020-01-08 23:58 | Outpatient (CLI) | payer OTHER ==
[2020-01-09 00:24] VITALS: BP 108/75
[2020-01-09] MEDS ORDERED: D5W/LACTATED RINGERS 1,000 ML IV ONE (01:11)
== END 2020-01-09 01:38 | disposition home or self-care (01) ==
LOC: TRG 23:58 → APU 01-09 00:03 → TRG 01-09 01:38
PROVIDERS: ATTEND Obstetrics & Gynecology
DX: O26.893 Other specified pregnancy related conditions, third trimester (principal); R10.9 Unspecified abdominal pain; Z3A.40 40 weeks gestation of pregnancy
CPT/HCPCS: 59025; J7121

== ENCOUNTER 2020-01-09 10:24 | Outpatient (CLI) | payer SELFPAY ==
[2020-01-09 11:31] VITALS: BP 117/71
[2020-01-09] MEDS ORDERED: metroNIDAZOLE 500 MG TAB PO ONE (12:26)
[2020-01-09 13:44] LABS: Amphetamine Screen,Urine PRESUMPTIVE NEGATIVE; Benzodiazepines Screen,Urine PRESUMPTIVE NEGATIVE; Cannabinoid Screen,Urine PRESUMPTIVE NEGATIVE; Cocaine Screen,Urine PRESUMPTIVE NEGATIVE; Methadone Screen,Urine PRESUMPTIVE NEGATIVE; Opiate Screen,Urine PRESUMPTIVE NEGATIVE
[2020-01-09 13:45] LABS: Bilirubin,Urine NEG (Negative); Blood,Urine SM (Negative); Color,Urine Yellow (Yellow); Mucus,Urine FEW /HPF; Protein,Urine <15 mg/dL mg/dL (Negative); Urobilinogen,Urine < 2.0 mg/dL (<2.0)
[2020-01-09 14:03] LABS: Bacteria,Urine 1+ /HPF (Negative)
== END 2020-01-09 13:10 | disposition home or self-care (01) ==
LOC: TRG 10:24 → APU 10:59 → TRG 13:10
PROVIDERS: ATTEND Obstetrics & Gynecology
DX: O46.8X3 Other antepartum hemorrhage, third trimester (principal); R10.9 Unspecified abdominal pain; Z3A.40 40 weeks gestation of pregnancy
CPT/HCPCS: 59025; 80307; 81001; 87086

== ENCOUNTER 2020-01-11 00:09 | Inpatient (IN) | payer OTHER ==
[2020-01-11] MEDS ORDERED: LACTATED RINGERS 1,000 ML IV SCH (01:00)
[2020-01-11 01:19] LABS: Bilirubin,Urine NEG (Negative); Blood,Urine SM (Negative); Color,Urine Straw (Yellow); Mucus,Urine FEW /HPF; Protein,Urine <15 mg/dL mg/dL (Negative); Urobilinogen,Urine < 2.0 mg/dL (<2.0); WBC,Urine < 1.0 /HPF (0.0-6.0)
[2020-01-11] MEDS ORDERED: BICITRA ORAL LIQD 30ML ONE (01:26)
[2020-01-11 01:38] LABS: Basophils % (Auto) 0.4 % (0.0-1.8); Eosinophils % (Auto) 0.4 % (0.0-4.3); Hematocrit 34.3 % (30.3-42.9); Hemoglobin 12.1 gm/dl (10.1-14.3); Lymphocytes # (Auto) 2.3 K/mm3 (1.2-5.4); Lymphocytes % (Auto) 35.6 % (13.4-35.0); Mean Corpuscular HGB Conc 35 % (30-34); Mean Corpuscular Volume 97 fl (79-97); Monocytes # (Auto) 0.6 K/mm3 (0.0-0.8); Monocytes % (Auto) 9.9 % (0.0-7.3); Platelet Count 203 K/mm3 (140-440); Red Blood Count 3.52 M/mm3 (3.65-5.03); Red Cell Distribution Width 14.8 % (13.2-15.2)
[2020-01-11] MEDS ORDERED: METOCLOPRAMIDE 10 MG/2 ML INJ IV ONE (01:49)
[2020-01-11] MEDS ORDERED: FAMOTIDINE 20 MG/2 ML INJ IV ONE (01:49)
--- NOTE | 2020-01-11 01:50 | Anesthesia Day of Surgery ---
Anesthesia Day of Surgery - Day of Surgery Patient Examined: Yes Patient H&P Reviewed: Yes Patient is NPO: No Beta Blockers: No Cardiac Clearance: No Pulmonary Clearance: No Ubaldo's Test: N/A
[2020-01-11] MEDS ORDERED: ONDANSETRON 4 MG/2 ML INJ IV PRN ×2 (01:52→06:28)
[2020-01-11] MEDS ORDERED: HYDROmorphone 1 MG/1 ML INJ IV PRN (01:52)
[2020-01-11] MEDS ORDERED: NALOXONE 0.4 MG/1 ML INJ IV PRN ×2 (01:52→06:28)
--- NOTE | 2020-01-11 01:52 | Anesthesia Consultation ---
Anesthesia Consult and Med Hx Date of service: 01/11/20 - Airway Anesthetic Teeth Evaluation: Poor ROM Head & Neck: Adequate Mental/Hyoid Distance: Adequate Mallampati Class: Class II Intubation Access Assessment: Probably Good - Pulmonary Exam CTA: Yes - Cardiac Exam Cardiac Exam: RRR - Pre-Operative Health Status ASA Pre-Surgery Classification: ASA3, Emergency Proposed Anesthetic Plan: Spinal - Pulmonary Hx Smoking: No Hx Asthma: No Hx Respiratory Symptoms: No SOB: No COPD: No Home Oxygen Therapy: No Hx Pneumonia: No Hx Sleep Apnea: No - Cardiovascular System Hx Hypertension: No Hx Coronary Artery Disease: No Hx Heart Attack/AMI: No Hx Angina: No Hx Percutaneous Transluminal Coronary Angioplasty (PTCA): No Hx Cardia Arrhythmia: No Hx Pacemaker: No Hx Internal Defibrillator: No Hx Valvular Heart Disease: No Hx Heart Murmur: No Hx Peripheral Vascular Disease: No - Central Nervous System Hx Neuromuscular Disorder: No Hx Seizures: No CVA: No Hx Back Pain: Yes Hx Psychiatric Problems: Yes (3 attempts of suicide) - Gastrointestinal Hx Ulcer: No Hx Gastroesophageal Reflux Disease: Yes - Endocrine Hx Renal Disease: No Hx End Stage Renal Disease: No Hx Cirrhosis: No Hx Liver Disease: No Hx Insulin Dependent Diabetes: No Hx Non-Insulin Dependent Diabetes: No Hx Thyroid Disease: No Hx Hypothyroidism: No Hx Hyperthyroidism: No - Hematic Hx Anemia: Yes Hx Sickle Cell Disease: Yes (family) - Other Systems Hx Alcohol Use: No Hx Substance Use: No Hx Cancer: No Hx Obesity: No
[2020-01-11] MEDS ORDERED: ceFAZolin/Water 2 GM/20 ML 2 GM/20 ML SYRINGE IV NR (02:00)
[2020-01-11] MEDS ORDERED: OXYTOCIN 20 UNIT/1000ML DRIP 20 UNITS/1,000 ML BAG IV SCH ×2 (02:00→06:28)
[2020-01-11] MEDS ORDERED: PHENYLEPHRINE/NS 1,000 MCG/10 ML SYRINGE (OR USE) IV ONE (02:30)
[2020-01-11] MEDS ORDERED: KETOROLAC 30 MG/1 ML INJ ONE (02:30)
[2020-01-11] MEDS ORDERED: DEXMEDETOMIDINE 200 MCG/2 ML VIAL IV ONE (02:30)
[2020-01-11] MEDS ORDERED: ONDANSETRON 4 MG/2 ML INJ ONE (02:30)
[2020-01-11] MEDS ORDERED: OXYTOCIN 10 UNIT/1 ML INJ ONE (02:41)
[2020-01-11] MEDS ORDERED: METHYLERGONOVINE MALEATE 0.2 MG/ML VIAL IM ONE ×2 (02:43→03:26)
[2020-01-11 03:10] LABS: Bilirubin,Urine NEG (Negative); Blood,Urine NEG (Negative); Color,Urine Yellow (Yellow); Mucus,Urine 1+ /HPF; Protein,Urine <15 mg/dL mg/dL (Negative); Urobilinogen,Urine < 2.0 mg/dL (<2.0)
[2020-01-11 03:18] LABS: Amphetamine Screen,Urine PRESUMPTIVE NEGATIVE; Benzodiazepines Screen,Urine PRESUMPTIVE NEGATIVE; Cannabinoid Screen,Urine PRESUMPTIVE NEGATIVE; Cocaine Screen,Urine PRESUMPTIVE NEGATIVE; Methadone Screen,Urine PRESUMPTIVE NEGATIVE; Opiate Screen,Urine PRESUMPTIVE NEGATIVE
--- NOTE | 2020-01-11 03:18 | History and Physical Report ---
History of Present Illness Date of examination: 01/11/20 Date of admission: 01/11/20 00:32 Chief complaint: Contractions History of present illness: Pt is a 19 year old ELDER 01/03/20 at 41w1d who presents regular contractions since midnight. She experienced rupture of membranes while being evaluated in triage. She has had one visit this week with diagnosis of primary herpetic outbreak and initiation of Valtrex. She denies vaginal bleeding. Her GBS status is unknown. Past History Past Medical History: no pertinent history Past Surgical History: no surgical history DAIRY HELPER History: herpes Social history: no significant social history, other (H/o suicide attempt ) - Obstetrical History Expected Date of Delivery: 01/03/20 Actual Gestation: 41 Week(s) 1 Day(s) : 2 Para: 1 Hx # Term Pregnancies: 1 Number of Pregnancies: 0 Spontaneous Abortions: 0 Induced : 0 Number of Living Children: 1 Medications and Allergies Allergies Allergy/AdvReac Type Severity Reaction Status Date / Time pollen extracts Allergy Shortness Verified 01/11/20 00:31 of Breath raspberry Allergy Rash Verified 08/31/18 17:53 Home Medications Medication Instructions Recorded Confirmed Last Taken Type Pnv,Calcium 72/Iron/Folic Acid 1 tab PO DAILY 12/07/17 09/24/18 01/31/18 History [ Plus Tablet] FLUoxetine [PROzac] 20 mg PO QAM #30 capsule 09/26/18 Unknown Rx Ibuprofen [Motrin] 600 mg PO Q8H PRN #20 tablet 05/23/19 Unknown Rx Meclizine [Antivert] 25 mg PO Q8H PRN #30 tablet 05/23/19 Unknown Rx Nitrofurantoin [place]/M-Cryst 100 mg PO Q12HR #14 capsule 07/30/19 Unknown Rx [Macrobid CAP] Acetaminophen [Acetaminophen TAB] 500 mg PO Q6HR PRN #30 tablet 08/01/19 Un known Rx Dicyclomine [Bentyl] 20 mg PO Q6H PRN #24 tablet 08/01/19 Unknown Rx Famotidine [Pepcid] 20 mg PO Q12H #40 tablet 08/01/19 Unknown Rx Promethazine HCl [Phenergan SUPPOS] 25 mg RC Q6H PRN #15 supp.rect 08/01/19 Unknown Rx Promethazine [Phenergan] 25 mg PO Q6HR PRN #30 tab 08/01/19 Unknown Rx cephALEXin [Keflex] 500 mg PO Q8HR #30 cap 08/01/19 Unknown Rx Nitrofurantoin [place]/M-Cryst 100 mg PO Q12HR #14 capsule 09/30/19 Unknown Rx [Macrobid CAP] Active Meds: Active Medications Hydromorphone HCl (Dilaudid) 0.5 mg IV Q5M PRN PRN Reason: BREAK >(01-25) Stop: 01/11/20 10:23 Lactated Ringer's (Lactated Ringers) 1,000 mls @ 150 mls/hr IV DIRECT LAVONNE Last Admin: 01/11/20 01:39 Dose: 150 mls/hr Documented by: Oxytocin/Sodium Chloride (Pitocin/Ns 20 Unit/1000ml Drip) 20 units in 1,000 mls @ 0 mls/hr IV TITR LAVONNE Cefazolin Sodium (Ancef/Sterile Water 2 Gm/20 Ml) 2 gm in 20 mls @ 80 mls/hr IV PREOP NR; Protocol Stop: 01/11/20 23:45 Naloxone HCl (Naloxone) 0.2 mg IV Q2MIN PRN PRN Reason: Res Rate </= 8 or 02 SAT < 92% Ondansetron HCl (Zofran) 4 mg IV Q8H PRN PRN Reason: Nausea And Vomiting Review of Systems All systems: negative - Vital Signs Vital signs: Vital Signs Pulse BP 81 122/79 01/11/20 00:35 01/11/20 00:35 Temp Pulse Resp BP Pulse Ox 79 110/51 01/11/20 01:57 01/11/20 01:57 - Physical Exam Breasts: Positive: deferred Abdomen: Positive: soft (gravid ) Genitourinary (Female): Positive: perineal/vulvar lesions (herpetic lesions) Uterus: Positive: enlarged (gravid ) Extremities: Positive: normal - Obstetrical FHR: auscultation normal Uterine Contraction Monitor Mode: External Cervical Dilatation: 4 Cervical Effacement Percentage: 90 station: 0 Uterine Contraction Pattern: Regular Uterine Tone Measurement Phase: Resting Uterine Contraction Intensity: Strong/Firm Results Result Diagrams: 01/11/20 01:20 Abnormal lab results 01/11/20 Range/Units 01:20 RBC 3.52 L (3.65-5.03) M/mm3 MCH 34 H (28-32) pg MCHC 35 H (30-34) % Lymph % (Auto) 35.6 H (13.4-35.0) % [place] % (Auto) 9.9 H (0.0-7.3) % All other labs normal. Assessment and Plan A: IUP at 41w1d PROM Latent Labor Primary herpetic outbreak Insufficient Care H/o suicide attempt P: Proceed with urgent primary section and other indicated procedures
[2020-01-11] MEDS ORDERED: miSOPROStol 200 MCG TAB ONE (03:24)
[2020-01-11] MEDS ORDERED: miSOPROStol 100 MCG TAB ONE (03:25)
[2020-01-11] MEDS ORDERED: miSOPROStol 200 MCG TAB PR ONE (03:25)
[2020-01-11] MEDS ORDERED: miSOPROStol 100 MCG TAB PR ONE (03:26)
--- NOTE | 2020-01-11 03:31 | Procedure Note ---
OB Delivery Note - Delivery Date of Delivery: 01/11/20 Surgeon: CAROL SÁNCHEZ Estimated blood loss: other (800 mL) - Section Preop diagnosis: other (Primary herpetic outbreak ) Postop diagnosis: same section procedure: section, primary low transverse Disposition: PACU Complications: uterine atony Narrative: Please see operative report - Infant A at 1 minute: 8 at 5 minutes: 9 Infant Gender: Female (2953g (6lb 8oz) @ 0236 am)
--- NOTE | 2020-01-11 03:40 | Operative Report ---
Operative Report Operative Report: Date of procedure: December Preoperative diagnosis: 1) IUP at 41w1d 2) PROM 3) Latent Labor 4) Primary Herp etic Outbreak 5)Insufficient Care Postoperative diagnosis: Same 6) Uterine atony Procedure: Primary low transverse section Surgeon: Karin Orantes M.D. Anesthesia: Regional Findings: 1) Viable female , Apgars 8 and 9, weight 2953 g, (6 lb 8 oz) in cephalic presentation. Occiput posterior 2) Normal-appearing uterus ovaries and tubes Estimated blood loss: 800 mL IV fluids:1000 mL Urine output: 100 mL, clear at the end of the procedure Drains: Harris to gravity Specimens: Placenta to pathology Medications: Methergine 0.2 mg, additional 20 units of pitocin, Misoprostol 800 mcg per rectum Complications:None. Counts correct x 3 Disposition: Stable to PACU Indication for procedure: Pt is a 19year old at 41w1d presents in latent labor, rupture of membranes, in the setting of a primary herpetic outbreak. The decision was made to proceed with primary section. Operation in detail: After the risks, benefits, alternatives and complications were explained to the patient she gave informed consent for the procedure. She was subsequently taken to the operating room where regional anesthesia was noted to be adequate. She was subsequently placed in the dorsal supine position with leftward tilt and prepped and draped in a normal sterile fashion. heart tones were noted prior to incision. A timeout was performed. A Pfannenstiel skin incision was made with the knife and carried down to the layer of the fascia with the Bovie. The fascia was incised in the midline and the fascial incision was extended bilaterally with the Bovie. The fascial incision was then stretched. The rectus muscles were then in the midline and partially transected for adequate visualization. The peritoneum was then entered bluntly. The peritoneal incision was extended with good visualization of the bladder. The peritoneal incision was then stretched. An Francisco J retractor was placed. The bladder blade was then placed. A transverse incision was made in the lower uterine segment with a knife and extended bilaterally with the bandage scissors. Amniotomy was performed with egress of clear fluid. head delivered with ease, followed by shoulders and body. bulb suctioned at delivery. Cord clamped and cut. handed to NICU staff in attendance. Cord blood was collected. The placenta was then delivered manually. The uterus was then exteriorized and cleared of all clots and debris. The uterus was noted to be atonic, so an additional 20 units of pitocin and Methergine 0.2 mg IM. Uterine tone improved. The hysterotomy was then reapproximated with 0 Vicryl in a running locked fashion. A second layer of the same suture was used in imbricating fashion. The hysterotomy was inspected and hemostasis was noted. The gutters were irrigated and cleared of all clots and debris. The hysterotomy was again inspected and noted to be hemostatic. Surgicel was placed over the hysterotomy. The Francisco J retractor was removed. The uterus was placed back into the peritoneal cavity. The peritoneum was reapproximated with 2-0 Vicryl in a running fashion incorporating the rectus muscles. Surgicel was placed over the rectus muscles. The fascia was reapproximated with 0 Vicryl in a running fashion. The skin was reapproximated with 4-0 Vicryl in a subcuticular fashion. The incision was then covered with steri strips and a pressure dressing. The procedure was then ended. The patient tolerated the procedure well and was taken to the PACU in stable condition. All instrument, lap, and needle counts were correct 3. Misoprostol 800 mcg was administered per rectum after the procedure.
[2020-01-11] MEDS ORDERED: BICITRA ORAL LIQD 30ML PO ONE (06:09)
[2020-01-11] MEDS ORDERED: MORPHINE 2 MG/1 ML INJ IV PRN (06:28)
[2020-01-11] MEDS ORDERED: WITCH HAZEL/ GLYCERIN PAD TP PRN (06:28)
[2020-01-11] MEDS ORDERED: D5W/LACTATED RINGERS 1,000 ML IV SCH (06:28)
[2020-01-11] MEDS ORDERED: MORPHINE 4 MG/1 ML INJ IV PRN (06:28)
[2020-01-11] MEDS ORDERED: MAGNESIUM HYDROXIDE (MOM) ORAL LIQD UDC PO PRN (06:28)
[2020-01-11] MEDS ORDERED: SIMETHICONE 80 MG CHEW TAB PO PRN (06:28)
[2020-01-11] MEDS ORDERED: LANOLIN/ZINC/DIMETHICONE (LANSINOH) 7 GM TP PRN (06:28)
[2020-01-11] MEDS: KETOROLAC 30 MG/1 ML INJ IV SCH ×3 (06:48→17:47)
[2020-01-11] MEDS: ceFAZolin/NS 1 GM/50 ML 1 GM/50 ML BAG IV SCH ×2 (10:03→17:48)
--- NOTE | 2020-01-11 10:08 | Post Anesthesia Evaluation ---
- Post Anesthesia Evaluation Patient Participated: Yes Airway Patent: Yes Stable Respiratory Function: Yes Nausea/Vomiting: No Temp > 96.8F: Yes Pain Manageable: Yes Adequeate Hydration: Yes Anesthesia Complications: No Block Receding Appropriately: Yes Patient on Ventilator: No
[2020-01-11 18:25] LABS: Hematocrit 35.1 % (30.3-42.9); Hemoglobin 11.5 gm/dl (10.1-14.3)
[2020-01-11] MEDS: oxyCODONE /ACETAMINOPHEN 5-325MG TAB PO PRN (20:23)
[2020-01-11] MEDS: valACYclovir 500 MG TAB PO SCH (22:00)
[2020-01-12] MEDS: KETOROLAC 30 MG/1 ML INJ IV SCH
[2020-01-12] MEDS: oxyCODONE /ACETAMINOPHEN 5-325MG TAB PO PRN ×3 (01:10→19:07)
[2020-01-12] MEDS: valACYclovir 500 MG TAB PO SCH ×2 (05:58→09:19)
[2020-01-12] MEDS ORDERED: MEASLES, MUMPS & RUBELLA 12,500 UNIT/0.5 ML VACCINE SUB-Q ONE (06:00)
[2020-01-12] MEDS ORDERED: DIPHtheria,PERTUSSIS(ACELL),TETANUS VACCINE/PF 0.5 ML VIAL IM ONE (06:00)
[2020-01-12] MEDS: FERROUS SULFATE 325 MG TAB PO SCH (09:09)
[2020-01-12] MEDS: IBUPROFEN 800 MG TAB PO PRN (09:10)
--- NOTE | 2020-01-12 10:42 | Progress Note ---
Assessment and Plan A: POD1 s/p c/s HSV outbreak, on Valtrex Vital signs and labs stable H/o suicide attempts, mood is stable P: Continue current care Anticipate d/c to home on POD2 or 3 Subjective - Subjective Date of service: 01/12/20 Principal diagnosis: s/p primary , HSV outbreak in labor Interval history: POD1 s/p primary c/s Patient reports: appetite normal, voiding normally, pain well controlled, fl atus, ambulating normally, other (mood is "happy") [place]: doing well, in NICU Objective - Vital Signs Latest vital signs: Vital Signs Temp Pulse Resp BP BP Pulse Ox 01/12/20 08:39 97.6 F 58 L 18 91/50 98 01/12/20 06:58 18 01/12/20 05:58 18 01/12/20 02:10 18 01/12/20 01:15 98.4 F 73 18 114/75 98 01/12/20 01:10 18 01/12/20 00:00 18 01/11/20 21:23 18 01/11/20 20:23 18 01/11/20 20:11 98.0 F 82 18 103/55 96 01/11/20 12:00 97.7 F 72 18 111/72 100 Intake and Output 01/11/20 01/12/20 01/12/20 23:59 07:59 15:59 Intake Total 770 480 240 Output Total 300 Balance 470 480 240 Intake: IV 50 ANCEF/NS 1 GM/50 ML 1 gm 50 In 50 ml @ 100 mls/hr IV Q8H [facility] Rx#:[id number] Oral 480 Intake, Free Water 240 480 240 Output: Urine 300 Void 300 Other: Total, Intake Amount 240 Total, Output Amount 300 # Voids Void 1 1 - Exam Lungs: Present: Normal air movement Abdomen: Present: soft. Absent: distention Uterus: Present: firm, fundal height below umbilicus. Absent: bogginess Extremities: Present: normal Incision: Present: dressed
[2020-01-13] MEDS: valACYclovir 500 MG TAB PO SCH ×3 (00:58→09:05)
[2020-01-13] MEDS: oxyCODONE /ACETAMINOPHEN 5-325MG TAB PO PRN ×2 (01:53→14:33)
[2020-01-13] MEDS: FERROUS SULFATE 325 MG TAB PO SCH (09:05)
[2020-01-13] MEDS ORDERED: HYDROCORTISONE 1% CREAM 28.4GM TP PRN (09:37)
--- NOTE | 2020-01-13 09:39 | Progress Note ---
Assessment and Plan A: POD2 s/p c/s HSV outbreak, on Valtrex Vital signs and labs stable H/o suicide attempts, mood is stable Dermatitis due to surgical dressing P: Continue current care Topical Hydrocortisone Anticipate d/c to home on POD3 Subjective - Subjective Date of service: 01/13/20 Principal diagnosis: s/p primary , HSV outbreak in labor Interval history: POD2 s/p primary c/s Patient reports: appetite normal, voiding normally, pain well controlled, flatus, ambulating normally, other (irritation on left side of incision dressing) : doing well, in NICU Objective - Vital Signs Latest vital signs: Vital Signs Temp Pulse BP Pulse Ox 01/13/20 01:44 97.9 F 74 104/40 100 Intake and Output 01/12/20 01/13/20 01/13/20 23:59 07:59 15:59 Intake Total 1560 120 Balance 1560 120 Intake: Oral 720 120 Intake, Free Water 840 Other: Total, Intake Amount 240 120 # Voids Void 1 1 - Exam Breasts: Present: other (pumping) Lungs: Present: Normal air movement Abdomen: Present: soft. Absent: distention Uterus: Present: firm, fundal height below umbilicus. Absent: bogginess Extremities: Present: normal Incision: Present: dressed
[2020-01-13] MEDS: TRIAMCINOLONE 0.1% CREAM 15 GM TP SCH ×2 (14:33→22:00)
[2020-01-14] MEDS: IBUPROFEN 800 MG TAB PO PRN ×2 (00:10→13:21)
[2020-01-14] MEDS: valACYclovir 500 MG TAB PO SCH (09:01)
[2020-01-14] MEDS: TRIAMCINOLONE 0.1% CREAM 15 GM TP SCH (09:01)
[2020-01-14] MEDS: FERROUS SULFATE 325 MG TAB PO SCH (09:01)
--- NOTE | 2020-01-14 09:14 | Progress Note ---
Assessment and Plan A: POD#3 s/p primary section at term secondary to active genital herpes outbreak P: Routine postoperative care. Discharge today with follow up in 2 wks for incision check. Subjective - Subjective Date of service: 01/14/20 Principal diagnosis: s/p primary , HSV outbreak in labor Interval history: Pt without complaints presently. Patient reports: appetite normal, voiding normally, pain well controlled, flatus, ambulating normally, no bowel movement : in NICU Objective - Vital Signs Latest vital signs: Vital Signs Temp Pulse Resp BP BP Pulse Ox 01/14/20 08:21 97.2 F L 18 99/43 01/14/20 02:25 97.8 F 61 20 108/48 99 01/13/20 16:15 97.9 F 78 20 104/53 Intake and Output 01/13/20 01/14/20 01/14/20 22:59 06:59 14:59 Intake Total 440 Balance 440 Intake: Oral 440 Other: Total, Intake Amount 120 # Voids Void 2 - Exam Breasts: Present: deferred Abdomen: Present: soft Uterus: Present: fundal height below umbilicus Extremities: Present: normal Incision: Present: intact
--- NOTE | 2020-01-14 13:11 | Discharge Summary ---
Providers - Providers Date of Admission: 01/11/20 00:32 Date of discharge: 01/14/20 Attending physician: CAROL SÁNCHEZ 01/12/20 08:15 Consult to Case Management [CONS] Routine Services Needed at Discharge: Other Notified:: Yes Phone number called:: [phone] Additional Physician Instructions: Limited care, one visit. Primary care physician: CAROL SÁNCHEZ Hospitalization Reason for admission: active labor, other (primary genital herpes outbreak) Delivery: Procedure: section, primary low transverse Procedure details: Please see operative report Incision: intact Other procedures: none complications: none Discharge diagnosis: IUP at term delivered baby: female Hospital course: Pt was admitted in active labor at term with an active genital herpes outbreak. She underwent a primary section which she tolerated well. Her postoperative course was uncomplicated and she met discharge criteria on POD#3. She will follow up in two weeks for an incision check. Condition at discharge: Stable Disposition: DC- TO HOME OR SELFCARE - Discharge Diagnoses (1) Insufficient care Status: Acute (2) S/P section Status: Acute (3) Genital herpes affecting , delivered, current hospitalization Status: Acute (4) 41 weeks gestation of Status: Acute (5) History of suicidal ideation Status: Acute Plan - Discharge Medications Prescriptions: Ibuprofen [Motrin] 800 mg PO Q8HR PRN #60 tablet PRN Reason: Pain , Severe (7-10) oxyCODONE /ACETAMINOPHEN [Percocet 5/325] 1 tab PO Q6HR PRN #30 tablet PRN Reason: Pain - Provider Discharge Summary Activity: routine, no sex for 6 weeks, no heavy lifting 4 weeks, no strenuous exercise Diet: routine Instructions: routine Additional instructions: [] Smoking cessation referral if applicable(refer to patient education folder for contact #) [] Refer to [facility] Booklet Call your doctor immediately for: * Fever > 100.5 * Heavy vaginal bleeding ( >1 pad per hour) * Severe persistent headache * Shortness of breath * Reddened, hot, painful area to leg or breast * Drainage or odor from incision. * Keep incision clean and dry at all times and follow doctor's instructions regarding bathing/showering - Follow up plan Follow up: RADHA ALSTON CNM [Advanced Practice Nurse] - 01/28/20 (PLease call to schedule an incision check appt )
[2020-01-14] MEDS ORDERED: MAGNESIUM HYDROXIDE (MOM) ORAL LIQD UDC PO SCH (14:00)
[2020-01-14 18:46] VITALS: BP 112/67
[2020-01-16 12:54] LABS: HSV 1 IgG Type-Specific Ab <0.90 Index (<0.90); HSV 2 IgG Type-Specific Ab 4.39 Index (<0.90)
== END 2020-01-14 17:45 | disposition home or self-care (01) | DRG 787 ==
LOC: TRG 00:09 → APU 00:10 → TRG 00:32 → OB 06:18
PROVIDERS: ADMIT Obstetrics & Gynecology; ATTEND Obstetrics & Gynecology
PROC: 10D00Z1 Extraction of Products of Conception, Low, Open Approach (ICD-10-PCS; principal; 2020-01-11)
PROC: 3E0234Z Introduction of Serum, Toxoid and Vaccine into Muscle, Percutaneous Approach (ICD-10-PCS; 2020-01-12)
PROC: 3E0134Z Introduction of Serum, Toxoid and Vaccine into Subcutaneous Tissue, Percutaneous Approach (ICD-10-PCS; 2020-01-12)
DX: O42.92 Full-term premature rupture of membranes, unspecified as to length of time between rupture and onset of labor (principal); O98.32 Other infections with a predominantly sexual mode of transmission complicating childbirth; A60.00 Herpesviral infection of urogenital system, unspecified; O75.89 Other specified complications of labor and delivery; L30.8 Other specified dermatitis; O99.62 Diseases of the digestive system complicating childbirth; K21.9 Gastro-esophageal reflux disease without esophagitis; Z3A.41 41 weeks gestation of pregnancy; Z37.0 Single live birth; Z23 Encounter for immunization
CPT/HCPCS: 36415; 59025; 62324; 80307; 81001; 85014; 85018; 85025; 86592; 86695; 86696; 86706; 86762; 86850; 86900; 86901; 87529; 87806; 88307; 90471; 90715; G0378; A6250; J0690; J1885; J2210; J2270; J2370; J2405; J2590; J2765; J3490; J7120